=== PATIENT | female | born 1965 | race Caucasian/White ===

== ENCOUNTER → 2022-02-18 13:19 | Outpatient (BNVA) | payer MEDICARE, MEDICAID, SELFPAY | PROVIDERS: PCP Family Medicine; Visit Provider Emergency Medicine | DX: R39.9 Unspecified symptoms and signs involving the genitourinary system (principal); N39.0 Urinary tract infection, site not specified | CPT/HCPCS: 81000 ==

== ENCOUNTER 2022-09-09 19:05 | Emergency (ER) | payer MEDICARE, MEDICAID, SELFPAY ==
[2022-09-09 19:12] VITALS: BP 165/74; PULSE 99; RESP 16; TEMP 36.4; O2SAT 98
--- NOTE | 2022-09-09 21:43 | ED_ITS ---
Documented by User: Aaron Savage MD 09/17/22 20:00 HPI - General Adult General: Chief complaint: General Medical Stated complaint: detoxing from alcohol, anxiety attacks Time Seen by Provider: 09/09/22 21:43 History of Present Illness: Ms. Choi is a 57-year-old lady with history of alcohol abuse presenting to the emergency department due to concern for alcohol withdrawal symptoms. She reports many years of drinking and most recently has been drinking 1 pint of vodka per day. She last drink a normal amount 3 days ago and has been experiencing increased anxiety and shakiness as well as abdominal pain since she last drank. In order to make it here she did take a drink just prior to coming in. She endorses one-time previously of quitting alcohol and was sober for 90 days, no true DTs or alcohol withdrawal seizures. Currently endorses progressively worsening symptoms which are moderate to severe in intensity. Generalized abdominal discomfort. No other specific changes in health, exacerbating, or alleviating factors identified. Onset (ago): day(s) Severity: moderate Relieving factors: none Exacerbating factors: none Associated symptoms: Reports decreased appetite, malaise, weakness and other Review of Systems General: Reports: 10 or more systems reviewed and unremarkable except in HPI and below Const: Reports: malaise PFSH ED PFSH: Medical History Alcoholic liver disease Social History Smoking and tobacco status: current every day smoker Female Reproductive History: Spontaneous abortions: No Physical Exam Const: COMMON NORMALS: alert GENERAL APPEARANCE: cooperative and well developed HENMT: COMMON NORMALS: normocephalic and atraumatic HEAD & SCALP: normocephalic and atraumatic Eye: COMMON NORMALS: conjunctivae normal CONJUNCTIVA: Yes conjunctivae normal SCLERA: sclerae normal Neck/C-Spine: COMMON NORMALS: supple GENERAL: Yes trachea midline Resp: COMMON NORMALS: clear to auscultation bilaterally EFFORT & INSPECTION: Yes able to speak in complete sentences AUSCULTATION: clear to auscultation bilaterally Cardio: COMMON NORMALS: regular rate and regular rhythm RATE: regular rate RHYTHM: regular rhythm GI: COMMON NORMALS: Soft to palpation PALPATION: Yes Soft to palpation, Yes Tenderness to palpation present (GI), No Guarding due to palpation present (GI) and No Rigid due to palpation PERCUSSION: normal to percussion Extremity: GENERAL: Yes normal exam except as noted and No edema Neuro: COMMON NORMALS: moves all extremities SENSORIUM/ORIENTATION: Yes alert and No Orientation impaired Psych: COMMON NORMALS: mental status grossly normal and Normal thought process present THOUGHT PROCESS: Normal thought process present Course Vital Signs: Vital signs: Vital Signs Temperature 97.9 F 09/09/22 23:41 Pulse Rate 95 09/09/22 23:41 Respiratory Rate 16 09/09/22 23:41 Blood Pressure 143/77 09/09/22 23:41 Pulse Oximetry 93 09/09/22 23:41 Oxygen Delivery Me thod 09/09/22 23:41 [facility] - General Adult Medical Decision Making 57-year-old lady presenting with symptoms related to cessation of alcohol in the context of chronic alcohol abuse. Patient is nontoxic and no reported history of seizures or true DTs. Labs with no leukocytosis, anemia present and normal platelet count. Metabolic panel with likely dehydration, hypokalemia. Abnormal transaminases and elevated bilirubin and lipase. Negative urinalysis. The patient does have some degree of right upper quadrant tenderness though I believe that this is more likely related to alcoholic hepatitis ultrasound will be ordered for evaluation of other pathology. Patient treated during ED course with IV fluids and doses of phenobarbital with improvement in symptoms. Handed off to Dr. Higgins pending ultrasound with likely plan for discharge. 57-year-old female checked out to me at shift change. This was pending a gallbladder ultrasound given her elevated transaminases. Gallbladder ultrasound shows cirrhosis with no sign of acute cholecystitis. She does have gallstones. No other significant findings by ultrasound. She has passed an oral challenge here. She will be allowed discharge treatment for alcohol withdrawal signed by the previous physician. Medical Records I reviewed the patient's medical records. Lab Data I reviewed the patient's lab results. 09/09/22 22:00 09/09/22 22:00 Radiology Impressions Gallbladder Ultrasound 09/09/22 22:46 IMPRESSION: 1. No sign of acute cholecystitis. The gallbladder is decompressed and contains large stones. 2. Cirrhosis. Laboratory Results WBC 9.2 10^3/uL (4.0-10.0) 09/09/22 22:00 RBC 3.60 10^6/uL (4.1-5.3) L 09/09/22 22:00 Hgb 9.9 g/dL (11.5-15.3) L 09/09/22 22:00 Hct 31.8 % (37.0-47.0) L 09/09/22 22:00 MCV 88.3 fl (81-99) 09/09/22 22:00 MCH 27.5 pg (28.0-34.0) L 09/09/22 22:00 MCHC 31.1 g/dL (30.0-36.0) 09/09/22 22:00 RDW 18.6 % (12.1-15.1) H 09/09/22 22:00 Plt Count 194 10^3/cmm (130-400) 09/09/22 22:00 MPV 10.6 fL (7.4-10.4) H 09/09/22 22:00 Neut % (Auto) 59.8 % 09/09/22 22:00 Lymph % (Auto) 20.0 % 09/09/22 22:00 [place] % (Auto) 13.9 % 09/09/22 22:00 Eos % (Auto) 4.8 % 09/09/22 22:00 Baso % (Auto) 1.1 % 09/09/22 22:00 Neut # (Auto) 5.47 10^3/uL (1.8-7.7) 09/09/22 22:00 Lymph # (Auto) 1.8 10^3/uL (0.8-4.8) 09/09/22 22:00 [place] # (Auto) 1.3 10^3/uL (0.2-0.9) H 09/09/22 22:00 Eos # (Auto) 0.4 10^3/uL (0.0-0.8) 09/09/22 22:00 Baso # (Auto) 0.1 10^3/uL (0.0-0.1) 09/09/22 22:00 Nucleated RBC % (auto) 0 % 09/09/22 22:00 Nucleated RBCs # 0.0 /100WBC 09/09/22 22:00 Sodium 135 mmol/L (136-145) L 09/09/22 22:00 Potassium 3.2 mmol/L (3.5-5.1) L 09/09/22 22:00 Chloride 98 mmol/L (98-107) 09/09/22 22:00 Carbon Dioxide 28 mmol/L (22-29) 09/09/22 22:00 Anion Gap 12.2 (5-19) 09/09/22 22:00 BUN 21 mg/dL (6-20) H 09/09/22 22:00 Creatinine 0.9 mg/dL (0.5-0.9) 09/09/22 22:00 GFR Calculation 64.8 mL/min (90-130) L 09/09/22 22:00 Glucose 141 mg/dL (65-115) H 09/09/22 22:00 Calculated Osmolality 285 mOsm/kg (285-295) 09/09/22 22:00 Calcium 9.6 mg/dL (8.5-10.5) 09/09/22 22:00 Total Bilirubin 1.7 mg/dL (0.15-1.2) H 09/09/22 22:00 AST 97 U/L (0-32) H 09/09/22 22:00 ALT 73 U/L (0-33) H 09/09/22 22:00 Alkaline Phosphatase 313 U/L (35-105) H 09/09/22 22:00 Total Protein 7.4 g/dL (6.6-8.7) 09/09/22 22:00 Albumin 2.9 g/dL (3.5-5.2) L 09/09/22 22:00 Globulin 4.5 g/dL (1.3-4.6) 09/09/22 22:00 Lipase 92 U/L (13-60) H 09/09/22 22:00 TSH 3.49 uIU/mL (0.27-4.20) 09/09/22 22:00 Urine Color Yellow (Yellow) 09/09/22: Urine Appearance Clear (CLEAR) 09/09/22: Urine pH 6 (5-7) 09/09/22:23 Ur Specific [place] 1.015 (1.005-1.030) 09/09/22 23:23 Urine Protein Neg (Negative) 09/09/22 23: Urine Glucose (UA) Norm (Normal) 09/09/22 23:23 Urine Ketones Negative (Negative) 09/09/22 23:23 Urine Blood Neg (Negative) 09/09/22 23:23 Urine Nitrate Negative (Negative) 09/09/22 23:23 Urine Bilirubin Neg (Negative) 09/09/22 23:23 Urine Urobilinogen 1 mg/dL (Negative) H 09/09/22 23:23 Ur Leukocyte Esterase Negative (Negative) 09/09/22 23:23 Discharge Plan Discharge Patient Disposition: Home Clinical Impression: Alcohol withdrawal, Alcoholic liver disease, Elevated lipase, Transaminitis Condition: Stable Prescriptions: New ondansetron 4 mg tablet,disintegrating 4 mg PO Q8H PRN (Reason: nausea and vomiting) Qty: 15 0RF gabapentin 300 mg capsule See Rx Instructions .ROUTE .COMPLEX Qty: 66 0RF Rx Instructions: Day 1:1,200mg BID plus 1,200mg x 1 PRN d2-7:600mg TID plus 600mg x 1 PRN d8 :300mg TID d9:300mg BID d10:300mg QHS No Action losartan PO meloxicam PO sertraline PO clonazepam PO albuterol inhaler inhalation levothyroxine PO nitrofurantoin monohyd/m-cryst [Macrobid] 100 mg capsule 100 mg PO BID 7 Days Qty: 14 0RF Rx Instructions: must administer with a meal/food Discharge Orders: Discharge ED (Routine); Ordered 09/09/22 Ordered By: Jeovany Higgins Referrals: Catarino Rachel DO [Primary Care Provider] - 1-3 days Discharge Diet: Usual diet Discharge Activity: Increase activity as tolerated Patient Instructions: Alcohol Withdrawal (ED) Activity Restrictions/Additional Instructions: Thank you for visiting the emergency department. You were seen and evaluated for symptoms likely related to cessation of alcohol use. Based on ED evaluation you did not require hospitalization at this time. I will prescribe gabapentin which is a taper as well as nausea medication. Given long standing history of alcohol abuse I would not expect you to feel completely normal however I do believe that these medications will help with symptoms. Please follow-up with your primary care provider. Return to the emergency department for uncontrolled symptoms, seizures, hallucinations, or anything else that you are concerned about and feel needs emergency department evaluation. Gabapentin taper: Day 1: 1,200mg twice daily plus 1,200mg x 1 as needed Day 2-7: 600mg 3 times daily plus 600mg x 1 as needed Day 8: 300mg 3 times daily Day 9: 300mg twice daily Day 10: 300mg at night Coding Level of Care Code ED Pulp Screen Operator for Chg Fwd Documented by User: Jeovany Higgins DO 09/10/22 00:29 HPI - General Adult General: Chief complaint: General Medical Stated complaint: detoxing from alcohol, anxiety attacks Time Seen by Provider: 09/09/22 21:43 PFSH ED PFSH: Medical History Alcoholic liver disease Social History Smoking and tobacco status: current every day smoker Course Vital Signs: Vital signs: Vital Signs Temperature 97.9 F 09/09/22 23:41 Pulse Rate 95 09/09/22 23:41 Respiratory Rate 16 09/09/22 23:41 Blood Pressure 143/77 09/09/22 23:41 Pulse Oximetry 93 09/09/22 23:41 Oxygen Delivery Me thod 09/09/22 23:41 MDM - General Adult Medical Decision Making 57-year-old female checked out to id at shift change. This was pending a gallbladder ultrasound given her elevated transaminases. Gallbladder ultrasound shows cirrhosis with no sign of acute cholecystitis. She does have gallstones. No other significant findings by ultrasound. She has passed an oral challenge here. She will be allowed discharge treatment for alcohol withdrawal signed by the previous physician. Lab Data 09/09/22 22:00 09/09/22 22:00 Radiology Impressions Gallbladder Ultrasound 09/09/22 22:46 IMPRESSION: 1. No sign of acute cholecystitis. The gallbladder is decompressed and contains large stones. 2. Cirrhosis. Laboratory Results WBC 9.2 10^3/uL (4.0-10.0) 09/09/22 22:00 RBC 3.60 10^6/uL (4.1-5.3) L 09/09/22 22:00 Hgb 9.9 g/dL (11.5-15.3) L 09/09/22 22:00 Hct 31.8 % (37.0-47.0) L 09/09/22 22:00 MCV 88.3 fl (81-99) 09/09/22 22:00 MCH 27.5 pg (28.0-34.0) L 09/09/22 22:00 MCHC 31.1 g/dL (30.0-36.0) 09/09/22 22:00 RDW 18.6 % (12.1-15.1) H 09/09/22 22:00 Plt Count 194 10^3/cmm (130-400) 09/09/22 22:00 MPV 10.6 fL (7.4-10.4) H 09/09/22 22:00 Neut % (Auto) 59.8 % 09/09/22 22:00 Lymph % (Auto) 20.0 % 09/09/22 22:00 [place] % (Auto) 13.9 % 09/09/22 22:00 Eos % (Auto) 4.8 % 09/09/22 22:00 Baso % (Auto) 1.1 % 09/09/22 22:00 Neut # (Auto) 5.47 10^3/uL (1.8-7.7) 09/09/22 22:00 Lymph # (Auto) 1.8 10^3/uL (0.8-4.8) 09/09/22 22:00 [place] # (Auto) 1.3 10^3/uL (0.2-0.9) H 09/09/22 22:00 Eos # (Auto) 0.4 10^3/uL (0.0-0.8) 09/09/22 22:00 Baso # (Auto) 0.1 10^3/uL (0.0-0.1) 09/09/22 22:00 Nucleated RBC % (auto) 0 % 09/09/22 22:00 Nucleated RBCs # 0.0 /100WBC 09/09/22 22:00 Sodium 135 mmol/L (136-145) L 09/09/22 22:00 Potassium 3.2 mmol/L (3.5-5.1) L 09/09/22 22:00 Chloride 98 mmol/L (98-107) 09/09/22 22:00 Carbon Dioxide 28 mmol/L (22-29) 09/09/22 22:00 Anion Gap 12.2 (5-19) 09/09/22 22:00 BUN 21 mg/dL (6-20) H 09/09/22 22:00 Creatinine 0.9 mg/dL (0.5-0.9) 09/09/22 22:00 GFR Calculation 64.8 mL/min (90-130) L 09/09/22 22:00 Glucose 141 mg/dL (65-115) H 09/09/22 22:00 Calculated Osmolality 285 mOsm/kg (285-295) 09/09/22 22:00 Calcium 9.6 mg/dL (8.5-10.5) 09/09/22 22:00 Total Bilirubin 1.7 mg/dL (0.15-1.2) H 09/09/22 22:00 AST 97 U/L (0-32) H 09/09/22 22:00 ALT 73 U/L (0-33) H 09/09/22 22:00 Alkaline Phosphatase 313 U/L (35-105) H 09/09/22 22:00 Total Protein 7.4 g/dL (6.6-8.7) 09/09/22 22:00 Albumin 2.9 g/dL (3.5-5.2) L 09/09/22 22:00 Globulin 4.5 g/dL (1.3-4.6) 09/09/22 22:00 Lipase 92 U/L (13-60) H 09/09/22 22:00 TSH 3.49 uIU/mL (0.27-4.20) 09/09/22 22:00 Urine Color Yellow (Yellow) 09/09/22: Urine Appearance Clear (CLEAR) 09/09/22: Urine pH 6 (5-7) 09/09/22: Ur Specific [place] 1.015 (1.005-1.030) 09/09/22 23:23 Urine Protein Neg (Negative) 09/09/22: Urine Glucose (UA) Norm (Normal) 01/28/23 23:23 Urine Ketones Negative (Negative) 09/09/22 23:23 Urine Blood Neg (Negative) 09/09/22 23:23 Urine Nitrate Negative (Negative) 09/09/22 23:23 Urine Bilirubin Neg (Negative) 09/09/22 23:23 Urine Urobilinogen 1 mg/dL (Negative) H 09/09/22 23:23 Ur Leukocyte Esterase Negative (Negative) 09/09/22 23:23 Discharge Plan Discharge Patient Disposition: Home Clinical Impression: Alcohol withdrawal, Alcoholic liver disease, Elevated lipase, Transaminitis Condition: Stable Prescriptions: New ondansetron 4 mg tablet,disintegrating 4 mg PO Q8H PRN (Reason: nausea and vomiting) Qty: 15 0RF gabapentin 300 mg capsule See Rx Instructions .ROUTE .COMPLEX Qty: 66 0RF Rx Instructions: Day 1:1,200mg BID plus 1,200mg x 1 PRN d2-7:600mg TID plus 600mg x 1 PRN d8:300mg TID d9:300mg BID d10:300mg QHS No Action losartan PO meloxicam PO sertraline PO clonazepam PO albuterol inhaler inhalation levothyroxine PO nitrofurantoin monohyd/m-cryst [Macrobid] 100 mg capsule 100 mg PO BID 7 Days Qty: 14 0RF Rx Instructions: must administer with a meal/food Discharge Orders: Discharge ED (Routine); Ordered 09/09/22 Ordered By: Jeovany Higgins Referrals: Catarino Rachel DO [Primary Care Provider] - 1-3 days Discharge Diet: Usual diet Discharge Activity: Increase activity as tolerated Patient Instructions: Alcohol Withdrawal (ED) Activity Restrictions/Additional Instructions: Thank you for visiting the emergency department. You were seen and evaluated for symptoms likely related to cessation of alcohol use. Based on ED evaluation you did not require hospitalization at this time. I will prescribe gabapentin which is a taper as well as nausea medication. Given long standing history of alcohol abuse I would not expect you to feel completely normal however I do believe that these medications will help with symptoms. Please follow-up with your primary care provider. Return to the emergency department for uncontrolled symptoms, seizures, hallucinations, or anything else that you are concerned about and feel needs emergency department evaluation. Gabapentin taper: Day 1: 1,200mg twice daily plus 1,200mg x 1 as needed Day 2-7: 600mg 3 times daily plus 600mg x 1 as needed Day 8: 300mg 3 times daily Day 9: 300mg twice daily Day 10: 300mg at night Coding Level of Care Code ED Pulp Screen Operator for [place] Bermeo
[2022-09-09 22:08] LABS: Basophils # 0.1 10^3/uL (0.0-0.1); Basophils % 1.1 %; Eosinophils # 0.4 10^3/uL (0.0-0.8); Eosinophils % 4.8 %; Hematocrit 31.8 % (37.0-47.0); Hemoglobin 9.9 g/dL (11.5-15.3); Lymphocytes # 1.8 10^3/uL (0.8-4.8); Mean Corpuscular HGB Conc 31.1 g/dL (30.0-36.0); Mean Corpuscular Hemoglobin 27.5 pg (28.0-34.0); Mean Corpuscular Volume 88.3 fl (81-99); Mean Platelet Volume 10.6 fL (7.4-10.4); Monocytes # 1.3 10^3/uL (0.2-0.9); Monocytes % 13.9 %; Neutrophils # 5.47 10^3/uL (1.8-7.7); Neutrophils % 59.8 %; Nucleated Red Blood Cells % 0 %; Platelet Count 194 10^3/cmm (130-400); Red Cell Distribution Width 18.6 % (12.1-15.1); White Blood Count 9.2 10^3/uL (4.0-10.0)
[2022-09-09] MEDS: sodium chloride 0.9% 1,000 ML 999 ML IV (22:13)
[2022-09-09] MEDS: PHENobarbital 130 mg/mL SDV 1 mL IV (22:14)
[2022-09-09 22:37] LABS: Alanine Aminotransferase 73 U/L (0-33); Albumin Level 2.9 g/dL (3.5-5.2); Alkaline Phosphatase 313 U/L (35-105); Anion Gap 12.2 (5-19); Aspartate Amino Transferase 97 U/L (0-32); Blood Urea Nitrogen 21 mg/dL (6-20); Calcium 9.6 mg/dL (8.5-10.5); Carbon Dioxide 28 mmol/L (22-29); Chloride 98 mmol/L (98-107); Globulin 4.5 g/dL (1.3-4.6); Glomerular Filtration Rate 64.8 mL/min (90-130); Glucose 141 mg/dL (65-115); Lipase 92 U/L (13-60); Osmolality Calculated 285 mOsm/kg (285-295); Potassium 3.2 mmol/L (3.5-5.1); Sodium 135 mmol/L (136-145); Thyroid Stimulating Hormone 3.49 uIU/mL (0.27-4.20); Total Bilirubin 1.7 mg/dL (0.15-1.2); Total Protein 7.4 g/dL (6.6-8.7)
--- NOTE | 2022-09-09 22:46 | USR_ITS ---
PROCEDURE INFORMATION: Exam: US Abdomen, Limited; Right Upper Quadrant Exam date and time: 09/09/2022 10:55 PM Age: 57 years old Clinical indication: Abdominal pain; Generalized; Additional info: Abd pain, transaminitis and elevated lipase TECHNIQUE: Imaging protocol: Real time ultrasound of the abdomen with image documentation. Limited exam focused on the right upper quadrant. COMPARISON: No relevant prior studies available. FINDINGS: Liver: The liver has a nodular contour and heterogeneous parenchymal echotexture. No mass is seen. Gallbladder: The gallbladder is decompressed preventing meaningful assessment the wall thickness. There are multiple calcified stones in the lumen. The largest measures 3.5 x 2.5 x 0.8 cm. Information regarding the presence or absence of sonographic Agosto sign was not provided. Biliary ducts: The common bile duct is nondilated measuring 3 mm Pancreas: The visible portion of the pancreas is unremarkable. Right kidney: The right kidney is unremarkable. Aorta: The visible portion of the abdominal aorta is unremarkable. Portal venous: The main portal vein is patent. US/US gall bladder [id number] IMPRESSION: 1. No sign of acute cholecystitis. The gallbladder is decompressed and contains large stones. 2. Cirrhosis.
[2022-09-09 23:32] LABS: Add Urine Microscopic? NO; Charge for UA Resulting for Rev
[2022-09-09 23:41] VITALS: BP 143/77; PULSE 95; RESP 16; TEMP 36.6; O2SAT 93
[2022-09-09 23:46] LABS: Blood Urine Neg (Negative); Glucose Urine UA Norm (Normal); Ketones Urine Negative (Negative); Protein Urine Neg (Negative); Specific Gravity, Urine 1.015 (1.005-1.030); Urine Appearance Clear (CLEAR); Urine Color Yellow (Yellow); pH Urine 6 (5-7)
[2022-09-09 23:47] LABS: Bilirubin Urine Neg (Negative); Leukocyte Esterase Urine Negative (Negative); Nitrate Urine Negative (Negative); Urobilinogen Urine 1 mg/dL (Negative)
== END 2022-09-10 01:17 | disposition home or self-care (01) ==
PROVIDERS: Emergency Medicine; Emergency Provider Emergency Medicine; PCP Family Medicine
DX: F10.239 Alcohol dependence with withdrawal, unspecified (principal); K70.9 Alcoholic liver disease, unspecified; R74.01 Elevation of levels of liver transaminase levels; E07.9 Disorder of thyroid, unspecified; R74.8 Abnormal levels of other serum enzymes; F17.210 Nicotine dependence, cigarettes, uncomplicated; K80.20 Calculus of gallbladder without cholecystitis without obstruction
CPT/HCPCS: 36415; 76705; 80053; 81003; 83690; 84443; 85025; 96361; 96374; 99284; J2560; J7030

== ENCOUNTER 2022-09-23 20:36 | Emergency (ER) | payer MEDICARE, MEDICAID, SELFPAY ==
[2022-09-23 20:37] VITALS: BP 143/74; PULSE 100; RESP 14; O2SAT 91; BMI 29.2
--- NOTE | 2022-09-23 21:18 | PC.NURSE ---
pt had large formed bowel movement.
--- NOTE | 2022-09-23 21:40 | CTR_ITS ---
PROCEDURE INFORMATION: Exam: CT Abdomen And Pelvis Without Contrast Exam date and time: 09/23/2022 9:56 PM Age: 57 years old Clinical indication: Abdominal pain; Prior surgery; Surgery date: 6+ months; Surgery type: Bi hip replacements; Additional info: Abd distention/pain TECHNIQUE: Imaging protocol: Computed tomography of the abdomen and pelvis without contrast. Radiation optimization: All CT scans at this facility use at least one of these dose optimization techniques: automated exposure control; mA and/or kV adjustment per patient size (includes targeted exams where dose is matched to clinical indication); or iterative reconstruction. Other protocol: This patient has received 0 known CTs and 0 known cardiac nuclear medicine studies in the 12 months prior to the current study. COMPARISON: US gall bladder [id number] 09/09/2022 10:55 PM RADIATION DOSE METRICS: Total DLP (mGy-cm): 686.12 FINDINGS: Lungs: Bibasilar discoid atelectasis and/or scarring. Heart: Severe calcification in the mitral valve and/or mitral valve annulus. Liver: Hepatic cirrhosis morphology with nodular contour and/or caudate lobe enlargement and/or left lobe enlargement. Gallbladder and bile ducts: Multiple gallstones within the gallbladder. Pancreas: Normal. No ductal dilation. Spleen: Normal. No splenomegaly. Adrenal glands: Normal. No mass. Kidneys and ureters: Normal. No hydronephrosis. Stomach and bowel: Dilated colon filled with air, fluid and feces suggesting possible colonic ileus. No obvious obstructing lesion. Appendix: No evidence of appendicitis. Intraperitoneal space: Unremarkable. No free air. No significant fluid collection. Vasculature: Calcification of the abdominal aorta and/or iliac arteries consistent with atherosclerotic vessel disease. One or more calcified pelvic phleboliths. Lymph nodes: Unremarkable. No enlarged lymph nodes. Urinary bladder: Unremarkable as visualized. Reproductive: Possible hysterectomy although the anatomy is obscured by metallic artifact. Bones/joints: Bilateral total hip replacement with metallic artifact partially obscuring the pelvic anatomy. Soft tissues: Unremarkable. CT/CT abdomen pelvis wo con [id number] IMPRESSION: 1. Bilateral total hip replacement with metallic artifact partially obscuring the pelvic anatomy. 2. Multiple gallstones within the gallbladder. 3. Dilated colon filled with air, fluid and feces suggesting possible colonic ileus. No obvious obstructing lesion.
--- NOTE | 2022-09-23 21:41 | ECG_ITS ---
[facility] Test Date: 2022-09-23 Pat Name: Heather Choi Department: Room: Gender: Female Grinding Machine Operator Automatic: : 1965 Requested By: Riley Randall Order Number: [id number] Abigail MD: Deondre Win M.D. Measurements Intervals [place] Rate: 89 P: 72 SC: 148 QRS: 27 QRSD: 102 T: 52 QT: 401 QTc: 490 Interpretive Statements SINUS RHYTHM POSSIBLE LEFT ATRIAL ENLARGEMENT [-0.1mV P-WAVE IN V1/V2] No previous ECG available for comparison Electronically Signed On 09-24-2022 8:40:43 BUSINESS OBJECTS CONSULTANT by Deondre Win M.D. [email or web address]
--- NOTE | 2022-09-23 21:41 | W.ED.ABDPA2 ---
HPI - Abdominal Pain General: Chief Complaint: Abdominal Pain Stated Complaint: CONSTIPATION Time Seen by Provider: 09/23/22 20:39 Source: patient and family Mode of arrival: ambulatory Limitations: no limitations History of Present Illness: ApparentlyPatient comes to our emergency department because of abdominal distention and no bowel movement for the last several days. She has a history of chronic constipation. She was recently at [facility] for alcoholic detox and was just discharged yesterday. States has been drinking fluids today but has not had a bowel movement and feels very distended. She states she has been using Librium as prescribed. She denies taking any opiates or other pain medications. She denies any history of abdominal surgeries. PFSH ED PFSH: Medical History Alcoholic liver disease Social History Smoking and tobacco status: current every day smoker Female Reproductive History: Spontaneous abortions: No Course Reevaluation(s): Reevaluation #1: Patient apparently had a large bowel movement while waiting for my evaluation. She states she does not feel significantly better. Time: 21:42 Reevaluation #2: Patient was reevaluated. I shared results with her. She admitted to me that she has not been taking any MiraLAX that she has at home. No evidence of obstruction or other worrisome condition at this time. She has a history of chronic constipation and will certainly benefit from a regular bowel regimen. She is suitable to be discharged for outpatient management with return precautions. Time: 22:31 Vital Signs: Vital signs: Vital Signs Pulse Rate 100 09/23/22 20:37 Respiratory Rate 14 09/23/22 20:37 Blood Pressure 143/74 09/23/22 20:37 Pulse Oximetry 91 09/23/22 20:37 Oxygen Delivery Me thod 09/23/22 20:37 MDM - Abdominal Pain Medical Decision Making Patient with a history of chronic alcohol use just recently discharged from detox who has also a history of chronic constipation presents because of abdominal distention and no bowel movement for the last several days. He is currently on Librium for continuation of her detox gram. No opiate use currently. Patient was admittedly not using any kind of bowel regimen. Her evaluation tonight did not reveal any evidence of a surgical abdomen she had abdominal distention but had a large formed bowel movement while in the emergency department. Subsequent laboratories and a CT scan did not reveal any perturbations of new or concerning laboratories other than her transaminitis which is chronic due to her chronic alcohol use. Given CT scan did not show any biliary tract obstruction etc. He received IV hydration while in the emergency department and is suitable to be managed as an outpatient with use of MiraLAX 1 packet 3 times daily to help with her bowel regiment. No evidence at this time to suggest surgical abdomen reasons for continued observation and/or admission. Patient voiced understanding and was desirous to be discharged home. Medical Records I reviewed the patient's medical records. Lab Data I reviewed the patient's lab results. 09/23/22 21:20 09/23/22 21:20 Labs/Radiology: Radiology Impressions Abdomen/Pelvis CT 09/23/22 21:40 IMPRESSION: 1. Bilateral total hip replacement with metallic artifact partially obscuring the pelvic anatomy. 2. Multiple gallstones within the gallbladder. 3. Dilated colon filled with air, fluid and feces suggesting possible colonic ileus. No obvious obstructing lesion. Laboratory Results WBC 10.5 10^3/uL (4.0-10.0) H 09/23/22 21:20 RBC 3.49 10^6/uL (4.1-5.3) L 09/23/22 21:20 Hgb 9.6 g/dL (11.5-15.3) L 09/23/22 21:20 Hct 30.6 % (37.0-47.0) L 09/23/22 21:20 MCV 87.7 fl (81-99) 09/23/22 21:20 MCH 27.5 pg (28.0-34.0) L 09/23/22 21:20 MCHC 31.4 g/dL (30.0-36.0) 09/23/22 21:20 RDW 20.3 % (12.1-15.1) H 09/23/22 21:20 Plt Count 178 10^3/cmm (130-400) 09/23/22 21:20 MPV 11.1 fL (7.4-10.4) H 09/23/22 21:20 Neut % (Auto) 65.5 % 09/23/22 21:20 Lymph % (Auto) 13.3 % 09/23/22 21:20 [place] % (Auto) 13.0 % 09/23/22 21:20 Eos % (Auto) 7.3 % 09/23/22 21:20 Baso % (Auto) 0.6 % 09/23/22 21:20 Neut # (Auto) 6.85 10^3/uL (1.8-7.7) 09/23/22 21:20 Lymph # (Auto) 1.4 10^3/uL (0.8-4.8) 09/23/22 21:20 [place] # (Auto) 1.4 10^3/uL (0.2-0.9) H 09/23/22 21:20 Eos # (Auto) 0.8 10^3/uL (0.0-0.8) 09/23/22 21:20 Baso # (Auto) 0.1 10^3/uL (0.0-0.1) 09/23/22 21:20 Nucleated RBC % (auto) 0 % 09/23/22 21:20 Nucleated RBCs # 0.0 /100WBC 09/23/22 21:20 Sodium 137 mmol/L (136-145) 09/23/22 21:20 Potassium 3.4 mmol/L (3.5-5.1) L 09/23/22 21:20 Chloride 98 mmol/L (98-107) 09/23/22 21:20 Carbon Dioxide 28 mmol/L (22-29) 09/23/22 21:20 Anion Gap 14.4 (5-19) 09/23/22 21:20 BUN 21 mg/dL (6-20) H 09/23/22 21:20 Creatinine 0.9 mg/dL (0.5-0.9) 09/23/22 21:20 GFR Calculation 64.8 mL/min (90-130) L 09/23/22 21:20 Glucose 127 mg/dL (65-115) H 09/23/22 21:20 Calculated Osmolality 289 mOsm/kg (285-295) 09/23/22 21:20 Calcium 9.2 mg/dL (8.5-10.5) 09/23/22 21:20 Total Bilirubin 1.7 mg/dL (0.15-1.2) H 09/23/22 21:20 AST 153 U/L (0-32) H 09/23/22 21:20 ALT 138 U/L (0-33) H 09/23/22 21:20 Alkaline Phosphatase 322 U/L (35-105) H 09/23/22 21:20 Total Protein 7.4 g/dL (6.6-8.7) 09/23/22 21:20 Albumin 3.1 g/dL (3.5-5.2) L 09/23/22 21:20 Globulin 4.3 g/dL (1.3-4.6) 09/23/22 21:20 EKG Data EKG 1: I personally reviewed and interpreted this EKG as follows: Interpretation: Contemporaneous review of EKG reveals ventricular rate of 89 bpm. Normal NM interval, QRS duration, corrected QT interval. Normal axis. P waves noted to be enlarged on limb lead II suggestive of possible left atrial enlargement. No other acute changes noted at this time. Discharge Plan Discharge Patient Disposition: Home Clinical Impression: Constipation, Transaminitis, Alcoholism Condition: Stable Prescriptions: New polyethylene glycol 3350 [Miralax] 17 gram powder in packet 17 g PO BID Qty: 100 0RF No Action losartan PO meloxicam PO sertraline PO clonazepam PO albuterol inhaler inhalation levothyroxine PO nitrofurantoin monohyd/m-cryst [Macrobid] 100 mg capsule 100 mg PO BID 7 Days Qty: 14 0RF Rx Instructions: must administer with a meal/food ondansetron 4 mg tablet,disintegrating 4 mg PO Q8H PRN (Reason: nausea and vomiting) Qty: 15 0RF gabapentin 300 mg capsule See Rx Instructions .ROUTE .COMPLEX Qty: 66 0RF Rx Instructions: Day 1:1,200mg BID plus 1,200mg x 1 PRN d2-7:600mg TID plus 600mg x 1 PRN d8:300mg TID d9:300mg BID d10:300mg QHS Discharge Orders: Discharge ED (Routine); Ordered 09/23/22 Ordered By: Riley Randall Referrals: Catarino Rachel DO [Primary Care Provider] - Discharge Diet: Advance as tolerated Discharge Activity: Increase activity as tolerated Patient Instructions: Opioid Safety, Pain Management Activity Restrictions/Additional Instructions: Continue your Librium and other medications as prescribed. Do not drink alcohol. Drink at least 2 quarts of water daily. Take the MiraLAX as we discussed 1 packet to 2 3 times daily to help keep your bowels moving. Should you develop fever or increasing pain or other concerns at any time you are welcome to return to this or the nearest emergency department. Coding Level of Care Code ED Secretarial Stenographer for Milton Bermeo
[2022-09-23 21:49] LABS: Basophils # 0.1 10^3/uL (0.0-0.1); Basophils % 0.6 %; Eosinophils # 0.8 10^3/uL (0.0-0.8); Eosinophils % 7.3 %; Hematocrit 30.6 % (37.0-47.0); Hemoglobin 9.6 g/dL (11.5-15.3); Lymphocytes # 1.4 10^3/uL (0.8-4.8); Lymphocytes % 13.3 %; Mean Corpuscular HGB Conc 31.4 g/dL (30.0-36.0); Mean Corpuscular Hemoglobin 27.5 pg (28.0-34.0); Mean Corpuscular Volume 87.7 fl (81-99); Mean Platelet Volume 11.1 fL (7.4-10.4); Monocytes # 1.4 10^3/uL (0.2-0.9); Neutrophils # 6.85 10^3/uL (1.8-7.7); Neutrophils % 65.5 %; Nucleated Red Blood Cells % 0 %; Platelet Count 178 10^3/cmm (130-400); Red Blood Count 3.49 10^6/uL (4.1-5.3); Red Cell Distribution Width 20.3 % (12.1-15.1); White Blood Count 10.5 10^3/uL (4.0-10.0)
[2022-09-23] MEDS: sodium chloride 0.9% 1,000 ML 999 ML IV (22:03)
[2022-09-23 22:04] LABS: Alanine Aminotransferase 138 U/L (0-33); Albumin Level 3.1 g/dL (3.5-5.2); Alkaline Phosphatase 322 U/L (35-105); Anion Gap 14.4 (5-19); Aspartate Amino Transferase 153 U/L (0-32); Blood Urea Nitrogen 21 mg/dL (6-20); Calcium 9.2 mg/dL (8.5-10.5); Carbon Dioxide 28 mmol/L (22-29); Chloride 98 mmol/L (98-107); Globulin 4.3 g/dL (1.3-4.6); Glomerular Filtration Rate 64.8 mL/min (90-130); Glucose 127 mg/dL (65-115); Osmolality Calculated 289 mOsm/kg (285-295); Potassium 3.4 mmol/L (3.5-5.1); Sodium 137 mmol/L (136-145); Total Bilirubin 1.7 mg/dL (0.15-1.2); Total Protein 7.4 g/dL (6.6-8.7)
== END 2022-09-23 23:47 | disposition home or self-care (01) ==
PROVIDERS: Emergency Provider Emergency Medicine; PCP Family Medicine
DX: K59.00 Constipation, unspecified (principal); R74.01 Elevation of levels of liver transaminase levels; F10.20 Alcohol dependence, uncomplicated; F17.210 Nicotine dependence, cigarettes, uncomplicated
CPT/HCPCS: 74176; 80053; 85025; 93005; 96360; 99285; J7030

== ENCOUNTER 2022-09-28 14:27 | Observation (INO) | payer MEDICARE, MEDICAID, SELFPAY ==
[2022-09-28 14:40] VITALS: BP 141/48; PULSE 107; RESP 18; TEMP 36.6; O2SAT 86; BMI 33.7
--- NOTE | 2022-09-28 15:03 | ED_ITS ---
HPI - Alcohol General: Chief Complaint: Alcohol Stated Complaint: WANTS DETOX Time Seen by Provider: 09/28/22 14:37 Source: patient Mode of arrival: EMS History of Present Illness: 57-year-old female presents to the emergency room stating that she is withdrawing from alcohol. Her last drink was at 11:00 this morning. She usually drinks a pint of alcohol per day usually in the form of vodka. She reports having had seizures back in 2014 when she tried to stop drinking. When asked her why she was trying to stop she said because I told him the only way she would be able to get a hip replacement. She was seated to rehab she presents here primarily because she is concerned she is going to have seizures. MD complaint: alcohol dependence Last drink: Hours (ago) Chronic alcohol use: Yes Previous visits for alcohol intoxication: Yes Recent trauma: No Associated symptoms: Deny abdominal pain, depression, diaphoresis, hematemesis, involuntary movements, melena, nausea, seizure-like activity, suicidal ideation, syncope, vomiting or other Treatments prior to arrival: none Review of Systems Const: Denies: fever(s), chills, fatigue, malaise or diaphoresis ENMT: Denies: throat pain, ear or mastoid pain, nasal discharge or nasal congestion Card: Denies: chest pain, palpitations, irregular heart rhythm, edema, swelling of feet/ankles or syncope Resp: Denies: dyspnea, productive cough or non-productive cough GI: Denies: abdominal pain, nausea, vomiting, hematemesis or melena : Denies: flank pain, difficulty voiding, dysuria, urinary frequency or urinary urgency Musc: Denies: neck pain or back pain Skin/Breast: Denies: rash or pruritus Neuro: Denies: seizure-like activity or involuntary movements Psych: Denies: anxiety, depression or suicidal ideation PFSH ED PFSH: Medical History Alcohol use disorder Alcoholic liver disease HTN (hypertension) Osteoarthritis Surgical History History of hip replacement, total Family History Other Alcoholism Social History Smoking and tobacco status: current every day smoker Alcohol intake: current Alcohol intake frequency: 3 or more drinks per day Alcohol type: hard liquor Lives independently: Yes Household members: none Marital status: Single Female Reproductive History: Spontaneous abortions: No Physical Exam Const: COMMON NORMALS: no acute distress GENERAL APPEARANCE: cooperative and comfortable ORIENTATION/CONSCIOUSNESS: Yes awake, Yes oriented to person, Yes oriented to place and Yes oriented to time HENMT: COMMON NORMALS: normocephalic, atraumatic and hearing grossly normal bilaterally HEAD & SCALP: normocephalic and atraumatic Resp: COMMON NORMALS: normal respiratory effort, No retractions, No use of accessory muscles and clear to auscultation bilaterally AUSCULTATION: clear to auscultation bilaterally Cardio: COMMON NORMALS: regular rate, regular rhythm and No murmurs present (Cardio) RATE: regular rate RHYTHM: regular rhythm GI: COMMON NORMALS: Soft to palpation and No hepatosplenomegaly present AUSCULTATION: Yes normoactive bowel sounds PALPATION: Yes Soft to palpation, No Tenderness to palpation present (GI), No Guarding due to palpation present (GI) and Yes No hepatosplenomegaly present Extremity: COMMON NORMALS: normal to inspection, capillary refill normal, no clubbing, cyanosis or edema, no calf tenderness and no pedal edema Neuro: SENSORIUM/ORIENTATION: Yes oriented to person, Yes oriented to place and Yes oriented to time Skin: COMMON NORMALS: no rashes or lesions noted GENERAL SKIN EXAM: no rashes or lesions noted Course Vital Signs: Vital signs: Vital Signs Temperature 98.0 F 09/30/22 15:00 Pulse Rate 86 09/30/22 15:00 Respiratory Rate 18 09/30/22 15:00 Blood Pressure 145/78 09/30/22 15:00 Pulse Oximetry 91 09/30/22 15:00 Oxygen Delivery Me thod 09/30/22 08:52 Oxygen Flow Rate 5 09/30/22 08:35 MDM - Alcohol Medical Decision Making Alcohol withdrawal with acute anemia. Patient given Ativan here which did help her tremor.. Hemoccult stools. Discussed with hospitalist continue CIWA protocol May require EGD to evaluate for acute blood loss from gastric source. Medical Records I reviewed the patient's medical records. Lab Data I reviewed the patient's lab results. 09/30/22 04:05 09/30/22 04:05 Radiology Impressions Chest X-Ray 09/28/22 16:03 Impression: Atherosclerosis and hyperinflation. Laboratory Results WBC 9.5 10^3/uL (4.0-10.0) 09/28/22 15:15 RBC 3.23 10^6/uL (4.1-5.3) L 09/28/22 15:15 Hgb 8.8 g/dL (11.5-15.3) L 09/28/22 15:15 Hct 28.5 % (37.0-47.0) L 09/28/22 15:15 MCV 88.2 fl (81-99) 09/28/22 15:15 MCH 27.2 pg (28.0-34.0) L 09/28/22 15:15 MCHC 30.9 g/dL (30.0-36.0) 09/28/22 15:15 RDW 19.6 % (12.1-15.1) H 09/28/22 15:15 Plt Count 208 10^3/cmm (130-400) 09/28/22 15:15 MPV 9.7 fL (7.4-10.4) 09/28/22 15:15 Neut % (Auto) 68.4 % 09/28/22 15:15 Lymph % (Auto) 10.5 % 09/28/22 15:15 [place] % (Auto) 14.8 % 09/28/22 15:15 Eos % (Auto) 5.2 % 09/28/22 15:15 Baso % (Auto) 0.8 % 09/28/22 15:15 Neut # (Auto) 6.50 10^3/uL (1.8-7.7) 09/28/22 15:15 Lymph # (Auto) 1.0 10^3/uL (0.8-4.8) 09/28/22 15:15 [place] # (Auto) 1.4 10^3/uL (0.2-0.9) H 09/28/22 15:15 Eos # (Auto) 0.5 10^3/uL (0.0-0.8) 09/28/22 15:15 Baso # (Auto) 0.1 10^3/uL (0.0-0.1) 09/28/22 15:15 Nucleated RBC % (auto) 0 % 09/28/22 15:15 Nucleated RBCs # 0.0 /100WBC 09/28/22 15:15 Sodium 136 mmol/L (136-145) 09/28/22 15:15 Potassium 3.0 mmol/L (3.5-5.1) L 09/28/22 15:15 Chloride 95 mmol/L (98-107) L 09/28/22 15:15 Carbon Dioxide 28 mmol/L (22-29) 09/28/22 15:15 Anion Gap 16.0 (5-19) 09/28/22 15:15 BUN 20 mg/dL (6-20) 09/28/22 15:15 Creatinine 1.4 mg/dL (0.5-0.9) H 09/28/22 15:15 GFR Calculation 38.9 mL/min (90-130) L 09/28/22 15:15 Glucose 113 mg/dL (65-115) 09/28/22 15:15 Calculated Osmolality 285 mOsm/kg (285-295) 09/28/22 15:15 Calcium 8.7 mg/dL (8.5-10.5) 09/28/22 15:15 Total Bilirubin 1.7 mg/dL (0.15-1.2) H 09/28/22 15:15 AST 51 U/L (0-32) H 09/28/22 15:15 ALT 67 U/L (0-33) H 09/28/22 15:15 Alkaline Phosphatase 231 U/L (35-105) H 09/28/22 15:15 Total Protein 7.3 g/dL (6.6-8.7) 09/28/22 15:15 Albumin 3.1 g/dL (3.5-5.2) L 09/28/22 15:15 Globulin 4.2 g/dL (1.3-4.6) 09/28/22 15:15 Lipase 72 U/L (13-60) H 09/28/22 15:15 Ethyl Alcohol < 10 mg/dL (0-10) 09/28/22 15:15 Discharge Plan Discharge Patient Disposition: Admitted As Inpatient Admit Provider: Santos Saldaña Clinical Impression: Alcohol withdrawal, Acute anemia, Melena, JACK (acute kidney injury), Hypokalemia, Elevated liver function tests, Acute metabolic encephalopathy Condition: Stable Discharge Diet: As Directed, Low Cholesterol and Low Fat Coding Level of Care Code ED Sterile Instrument Technician for Milton Bermeo
[2022-09-28 15:43] LABS: Basophils # 0.1 10^3/uL (0.0-0.1); Basophils % 0.8 %; Eosinophils # 0.5 10^3/uL (0.0-0.8); Eosinophils % 5.2 %; Hematocrit 28.5 % (37.0-47.0); Hemoglobin 8.8 g/dL (11.5-15.3); Lymphocytes % 10.5 %; Mean Corpuscular HGB Conc 30.9 g/dL (30.0-36.0); Mean Corpuscular Hemoglobin 27.2 pg (28.0-34.0); Mean Corpuscular Volume 88.2 fl (81-99); Mean Platelet Volume 9.7 fL (7.4-10.4); Monocytes # 1.4 10^3/uL (0.2-0.9); Monocytes % 14.8 %; Neutrophils % 68.4 %; Nucleated Red Blood Cells % 0 %; Platelet Count 208 10^3/cmm (130-400); Red Blood Count 3.23 10^6/uL (4.1-5.3); Red Cell Distribution Width 19.6 % (12.1-15.1); White Blood Count 9.5 10^3/uL (4.0-10.0)
[2022-09-28] MEDS: folic acid 1 MG, multivitamin inj 10 ML, thiamine 100 MG in sodium chloride 0.9% 1,000 ML 252.8 MG IV (15:52)
[2022-09-28] MEDS: LORazepam 2 mg/mL INJ 1 mL IVP (15:58)
[2022-09-28] MEDS: promethazine 25 mg/mL SDV 1 mL IM (15:59)
--- NOTE | 2022-09-28 16:03 | XR_ITS ---
WS: [id number] Portable AP upright chest, 09/28/2022 Clinical Data: dyspnea/cough Comparison: None. Findings: No nodules, masses or effusions are seen. The heart is normal. The pulmonary vascularity is not increased. No pneumonia or pneumothorax is seen. There are minimal basilar atelectatic changes. The diaphragms are flattened. The aortic arch and descending thoracic aorta show calcification and mi ld tortuosity. There are monitor leads on the chest wall. XR/XR chest 1V portable [id number] Impression: Atherosclerosis and hyperinflation.
[2022-09-28 16:09] LABS: Alanine Aminotransferase 67 U/L (0-33); Albumin Level 3.1 g/dL (3.5-5.2); Alkaline Phosphatase 231 U/L (35-105); Aspartate Amino Transferase 51 U/L (0-32); Blood Urea Nitrogen 20 mg/dL (6-20); Calcium 8.7 mg/dL (8.5-10.5); Carbon Dioxide 28 mmol/L (22-29); Chloride 95 mmol/L (98-107); Globulin 4.2 g/dL (1.3-4.6); Glomerular Filtration Rate 38.9 mL/min (90-130); Glucose 113 mg/dL (65-115); Lipase 72 U/L (13-60); Osmolality Calculated 285 mOsm/kg (285-295); Sodium 136 mmol/L (136-145); Total Bilirubin 1.7 mg/dL (0.15-1.2); Total Protein 7.3 g/dL (6.6-8.7)
[2022-09-28 16:11] LABS: Alcohol Level < 10 mg/dL (0-10)
[2022-09-28] MEDS: ipratropium-albuterol 3 mL Neb INHALATION (16:24)
[2022-09-28 16:25] VITALS: PULSE 101; RESP 18; O2SAT 94
[2022-09-28 17:00] VITALS: BP 173/83; PULSE 102; RESP 14; O2SAT 94
[2022-09-28 18:25] VITALS: BP 173/83; PULSE 98; RESP 16; O2SAT 96
[2022-09-28] MEDS: pantoprazole 40 mg SDV IVP (18:35)
--- NOTE | 2022-09-28 18:57 | P.HP_ITS ---
Providers/Chief Complaint Admitting Physician: Santos Saldaña Primary Care Provider: Catarino Rachel DO Chief Complaint: WANTS DETOX History of Present Illness 57-year-old lady with history of alcohol use disorder, hypertension, osteoarthritis, smoking addiction, hypothyroidism, alcoholic liver disease, presented concerned that she is starting to withdraw from alcohol. She states that last drink was close to about 11 hours ago. She states that she normally drinks close to about 1-2 pints of vodka in a day. Reports history of withdrawal seizure. In ER she is currently lethargic but waking up to voice. Seems became more lethargic after receiving a dose of Ativan. She denies any other surreptitious drug use. She could not tell me whether she took her medications this morning. In ER is noted to have anemia with hemoglobin 8.8, reporting history of dark/black stools recently. Also noted JACK, creatinine at 1.4, prior creatinine 0.9 on 09/23. Abnormal liver parameters noted as well, T. bili 1.7, AST 51, ALT 67, alk phos 231. Lipase 72. EtOH undetectable. Chest x-ray with atherosclerosis and hyperinflation. Sister Yelena as surrogate decision-maker in case she could not make her own decisions. Review of Systems General: Reports: ROS unobtainable due to mental status Narrative: She falls asleep easily. Difficult to obtain review of systems. She denies headache, chest pain or pressure, shortness of breath. Has been having dark black stools. Denies taking NSAIDs, although meloxicam is listed on her home medications. Denies depression and any thoughts of self-harm or suicidal ideation. Medications/Allergies Home Medications Medication Instructions Recorded Confirmed Last Taken Type gabapentin 300 mg capsule See Rx Instructions .Route 09/09/22 09/28/22 Unknown Rx .COMPLEX #66 caps ondansetron 4 mg disintegrating 4 mg PO Q8H PRN nausea and 09/09/22 09/28/22 Unknown Rx tablet vomiting #15 tabs polyethylene glycol 3350 17 gram 17 g PO BID #100 ea 09/23/22 09/28/22 Unknown Rx oral powder packet (Miralax) albuterol sulfate 90 mcg/actuation 2 puff inhalation QID PRN 09/28/22 09/28/22 Unknown History aerosol inhaler Shortness Of Breath amlodipine 5 mg tablet 5 mg PO DAILY 09/28/22 09/28/22 Unknown History buspirone 5 mg tablet 5 mg PO TID 09/28/22 09/28/22 Unknown History chlorthalidone 25 mg tablet 25 mg PO DAILY 09/28/22 09/28/22 Unknown History clonazepam 0.5 mg tablet 0.5 mg PO BEDTIME PRN Anxiety 09/28/22 09/28/22 Unknown History levothyroxine 75 mcg tablet 75 mcg PO DAILY 09/28/22 09/28/22 Unknown History losartan 100 mg tablet 100 mg PO DAILY 09/28/22 09/28/22 Unknown History meloxicam 7.5 mg tablet 7.5 mg PO DAILY 09/28/22 09/28/22 Unknown History sertraline 100 mg tablet 100 mg PO DAILY 09/28/22 09/28/22 Unknown History Allergies Allergy/AdvReac Type Severity Reaction Status Date / Time No Known Allergies Allergy Unverified 09/09/22 19:15 PFSH Acute PFSH: Medical History Alcohol use disorder Alcoholic liver disease HTN (hypertension) Osteoarthritis Surgical History History of hip replacement, total Family History Other Alcoholism Social History Smoking and tobacco status: current every day smoker Alcohol intake: current Alcohol intake frequency: 3 or more drinks per day Alcohol type: hard liquor Substance/Drug Use: never Lives independently: Yes Household members: none Marital status: Single Female Reproductive History: Spontaneous abortions: No Vitals/I&O/Wt Last Vital Signs Temp 97.9 F 09/28/22 14:40 Pulse 98 09/28/22 18:25 Resp 16 09/28/22 18:25 BP 173/83 09/28/22 18:25 Pulse Ox 96 09/28/22 18:25 O2 Del Method 09/28/22 18:25 O2 Flow Rate 2 09/28/22 16:25 Weight last 48 hrs Weight 78.471 kg Physical Exam Narrative: Wakes up to voice, falls asleep easily. Const: GENERAL APPEARANCE: cooperative ORIENTATION/CONSCIOUSNESS: Yes lethargic OTHER: Mildly slurred speech Mild tremor. HENMT: COMMON NORMALS: oropharynx normal Neck/C-Spine: COMMON NORMALS: no JVD Resp: COMMON NORMALS: normal respiratory effort and clear to auscultation bilaterally AUSCULTATION: clear to auscultation bilaterally Cardio: COMMON NORMALS: no JVD, regular rhythm, S1 normal heart sound present, S2 normal heart sound present and No murmurs present (Cardio) RHYTHM: regular rhythm HEART SOUNDS: S1 normal heart sound present and S2 normal heart sound present GI: COMMON NORMALS: Normal to inspection, nondistended, normoactive bowel sounds present, Soft to palpation and non-tender PALPATION: Yes Soft to palpation Extremity: COMMON NORMALS: no joint enlargement and no pedal edema Neuro: COMMON NORMALS: moves all extremities SENSORIUM/ORIENTATION: Yes alert Skin: COMMON NORMALS: no rashes or lesions noted GENERAL SKIN EXAM: no rashes or lesions noted Data 09/28/22 15:15 09/28/22 15:15 A&P Assessment and plan (1) Alcohol withdrawal: Currently lethargic after receiving Ativan. May be combination toxic effect of her medications like gabapentin, possibly benzodiazepine that she has at home with clonazepam in the setting of JACK. Discussed with ER physician. Continue to monitor CIWA for further withdrawal. In case needing further benzodiazepine decrease dose to 2.5 mg. Requested thiamine, folic acid and multivitamin supplementation. Seizure precautions due to history of withdrawal seizures. Requires close monitoring. Monitoring with telemetry due to dyspnea with alcohol withdrawal, potassium abnormalities. Lipase noted, 72. (2) Acute anemia: Hemoglobin down to 8.8, on 09/23 hemoglobin was 9.6. PPI IV twice daily. D iscontinue NSAID. Requested follow-up blood counts. Check Hemoccult. Once recovers from more acute issues we will benefit from endoscopic evaluation. Monitor hemoglobin due to risk of further bleeding, requested. Check INR. Hold sertraline. (3) Melena: Likely NSAID induced gastritis/PUD. Will need further work-up as above. (4) JACK (acute kidney injury): Possibly NSAID induced. Requesting urine studies. Discontinue NSAIDs. Receiving fluid challenge. Follow-up renal function. Hold losartan. (5) Hypokalemia: Receiving IVF with potassium. Follow-up potassium level. Requested magnesium. (6) Transaminitis: Secondary to EtOH. Does have history of cholelithiasis noted on prior CT. No abdominal pain currently. No upper quadrant tenderness. Reassess transaminases. Monitor T. bili and alk phos. (7) Acute encephalopathy: Acute metabolic encephalopathy with alcohol withdrawal, possibly toxic effect from medications with JACK, possibly gabapentin, sertraline, benzodiazepine (clonazepam). Hold these medications for now. Plan Smoking addiction: Nicotine replacement. Hypertension: Continue amlodipine. Hypothyroidism ER documentation reviewed. Attestations Medical Necessity Statement*: Admission of over 2 midnights discontinued for assessment management of alcohol withdrawal with history of severe withdrawal in cluding seizure, acute encephalopathy, acute anemia with GI bleeding, JACK. Diagnoses Alcohol withdrawal F10.939 Acute anemia D64.9 Melena K92.1 JACK (acute kidney injury) N17.9 Hypokalemia E87.6 Transaminitis R74.01 Acute encephalopathy G93.40
[2022-09-28 20:16] VITALS: BP 109/67; PULSE 99; RESP 19; TEMP 37; O2SAT 94
[2022-09-28] MEDS: D5-NS 0.45% + KCL 20 mEq 20 MEQ/1,000 ML BAG 100 MEQ IV (20:21)
[2022-09-28] MEDS: amlodipine 5 mg Tablet PO (20:22)
[2022-09-28] MEDS: BuSPIRONE 10 mg Tablet 5 MG PO (21:03)
[2022-09-28 23:41] VITALS: BP 119/59; PULSE 105; RESP 20; TEMP 37.1; O2SAT 93
[2022-09-29 03:36] LABS: Urine Appearance Cloudy (CLEAR); Urine Color Yellow (Yellow)
[2022-09-29 03:37] LABS: Blood Urine 2+ (Negative); Glucose Urine UA Norm (Normal); Ketones Urine Negative (Negative); Nitrate Urine Negative (Negative); Protein Urine Trace (Negative); pH Urine 5 (5-7)
[2022-09-29 03:38] LABS: Add Urine Microscopic? YES; Bilirubin Urine Neg (Negative); Leukocyte Esterase Urine 2+ (Negative); Urobilinogen Urine 1 mg/dL (Negative)
[2022-09-29 03:39] VITALS: BP 102/64; PULSE 95; RESP 18; TEMP 36.7; O2SAT 94
[2022-09-29 03:45] LABS: Add Urine Culture? Yes; Bacteria Urine 4+ /hpf; WBC Urine >100 /hpf (0-5)
[2022-09-29] MEDS: D5-NS 0.45% + KCL 20 mEq 20 MEQ/1,000 ML BAG 100 MEQ IV ×2 (04:10→14:26)
[2022-09-29 04:43] LABS: Urine Creatinine 159 mg/dL (28-217); Urine Random Sodium 25 mmol/L
[2022-09-29] MEDS: pantoprazole 40 mg SDV IVP ×2 (05:20→17:05)
[2022-09-29 05:25] LABS: Basophils # 0.1 10^3/uL (0.0-0.1); Basophils % 0.8 %; Eosinophils # 0.6 10^3/uL (0.0-0.8); Eosinophils % 7.1 %; Hematocrit 25.2 % (37.0-47.0); Hemoglobin 7.7 g/dL (11.5-15.3); Lymphocytes # 1.9 10^3/uL (0.8-4.8); Lymphocytes % 20.9 %; Mean Corpuscular HGB Conc 30.6 g/dL (30.0-36.0); Mean Corpuscular Hemoglobin 26.9 pg (28.0-34.0); Mean Corpuscular Volume 88.1 fl (81-99); Mean Platelet Volume 9.9 fL (7.4-10.4); Monocytes # 1.4 10^3/uL (0.2-0.9); Monocytes % 15.7 %; Neutrophils # 5.01 10^3/uL (1.8-7.7); Neutrophils % 55.2 %; Nucleated Red Blood Cells % 0 %; Platelet Count 201 10^3/cmm (130-400); Red Blood Count 2.86 10^6/uL (4.1-5.3); Red Cell Distribution Width 19.6 % (12.1-15.1); White Blood Count 9.1 10^3/uL (4.0-10.0)
[2022-09-29 05:38] LABS: INR 1.25 (0.8-1.2)
[2022-09-29 05:44] LABS: Alanine Aminotransferase 56 U/L (0-33); Albumin Level 2.6 g/dL (3.5-5.2); Alkaline Phosphatase 197 U/L (35-105); Anion Gap 11.5 (5-19); Aspartate Amino Transferase 50 U/L (0-32); Blood Urea Nitrogen 19 mg/dL (6-20); Calcium 7.7 mg/dL (8.5-10.5); Carbon Dioxide 28 mmol/L (22-29); Chloride 102 mmol/L (98-107); Globulin 3.7 g/dL (1.3-4.6); Glomerular Filtration Rate 42.4 mL/min (90-130); Glucose 116 mg/dL (65-115); Osmolality Calculated 289 mOsm/kg (285-295); Potassium 3.5 mmol/L (3.5-5.1); Sodium 138 mmol/L (136-145); Total Bilirubin 1.4 mg/dL (0.15-1.2); Total Protein 6.3 g/dL (6.6-8.7)
[2022-09-29 08:00] VITALS: BP 108/69; PULSE 93; RESP 18; TEMP 36.6; O2SAT 90; O2SAT 93
[2022-09-29] MEDS: folic acid 1 mg Tablet PO (08:56)
[2022-09-29] MEDS: amlodipine 5 mg Tablet PO (08:56)
[2022-09-29] MEDS: BuSPIRONE 10 mg Tablet 5 MG PO ×3 (08:56→21:49)
[2022-09-29] MEDS: multivitamin therapeutic Tablet 1 TAB PO (08:57)
[2022-09-29] MEDS: levothyroxine 75 mcg Tablet PO (08:57)
[2022-09-29] MEDS: thiamine 100 mg Tablet PO (08:57)
[2022-09-29] MEDS: cefTRIAXone 1,000 MG in sodium chloride 0.9% (plus) 50 ML 100 MG IV (09:00)
[2022-09-29 09:26] LABS: Hemoglobin 7.7 g/dL (11.5-15.3)
--- NOTE | 2022-09-29 09:47 | PC.NURSE ---
Dr. Saldaña changed diet order to Clear liquid during morning report by verbal order.
[2022-09-29 10:55] VITALS: BP 116/72; PULSE 99; RESP 17; TEMP 36.7; O2SAT 94
--- NOTE | 2022-09-29 11:38 | P.PN_ITS ---
Subjective Subjective: She reported feeling better today. She is more alert. Denies having any withdrawal symptoms currently. Reports previously was having upper abdominal pain. Melanotic stools. Confirms taking meloxicam at home. Also discussing with case management regarding EtOH use disorder, states that she has an aftercare provider at [place] and has a plan to be returning there for rehabilitation. She states that she is very hungry, requesting to eat something, says she has not eaten in 2 days. Discussed with her risks, clear liquid diet for now due to GI bleeding. Vitals/I&O/Wt Last Vital Signs Temp 98.1 F 09/29/22 10:55 Pulse 99 09/29/22 10:55 Resp 17 09/29/22 10:55 BP 116/72 09/29/22 10:55 Pulse Ox 94 09/29/22 10:55 O2 Del Method 09/29/22 08:00 O2 Flow Rate 2 09/28/22 16:25 09/28/22 09/29/22 09/29/22 22:59 06:59 14:59 Intake Total 781.667 / 781.667 50 / 50 Output Total 400 / 400 Balance 781.667 / 781.667 -350 / -350 Weight last 48 hrs Weight 78.471 kg Physical Exam Const: COMMON NORMALS: patient oriented x3 and alert GENERAL APPEARANCE: cooperative and lethargic ORIENTATION/CONSCIOUSNESS: Yes awake and Yes lethargic HENMT: COMMON NORMALS: oropharynx normal Neck/C-Spine: COMMON NORMALS: no JVD Resp: COMMON NORMALS: normal respiratory effort and clear to auscultation bilaterally AUSCULTATION: clear to auscultation bilaterally Cardio: COMMON NORMALS: no JVD, regular rhythm, S1 normal heart sound present, S2 normal heart sound present and No murmurs present (Cardio) RHYTHM: regular rhythm HEART SOUNDS: S1 normal heart sound present and S2 normal heart sound present GI: COMMON NORMALS: Normal to inspection, nondistended, normoactive bowel sounds present, Soft to palpation and non-tender PALPATION: Yes Soft to palpation Extremity: COMMON NORMALS: no joint enlargement and no pedal edema Neuro: COMMON NORMALS: patient oriented x3 and moves all extremities SENSORIUM/ORIENTATION: Yes alert and Yes lethargic Skin: COMMON NORMALS: no rashes or lesions noted GENERAL SKIN EXAM: no rashes or lesions noted Data 09/29/22 09:08 09/29/22 05:11 A&P Assessment and plan (1) Alcohol withdrawal: Today she is awake and alert. Appears to have slightly delayed responses. Earlier this morning was not oriented, but is oriented currently. Gives history with regards to her EtOH use disorder. States she has an aftercare person at [place] and that she and her family are arranging for her to go there soon as she gets discharged from here. CIWA scores reviewed. Currently not in severe withdrawal. Monitor for progression to severe withdrawal. Reviewed magnesium, level is okay. Encephalopathy could also have been partially from combination toxic effect of her medications like gabapentin, possibly benzodiazepine that she has at home with clonazepam in the setting of JACK. Continue to monitor CIWA for further withdrawal. In case needing further benzodiazepine decrease dose to 2.5 mg. Requested thiamine, folic acid and multivitamin supplementation. Seizure precautions due to history of withdrawal seizures. Requires close monitoring. Monitoring with telemetry due to dyspnea with alcohol withdrawal, potassium abnormalities. (2) Acute anemia: Hemoglobin level appreciated, further decreased down to 7.7 this morning. Repeat requested. With melanotic stools, she confirms also use of meloxicam, EtOH intake, nona pected upper GI bleeding. Discussed with surgery. Placing consultation. Once recovers from more acute issues we will benefit from endoscopic evaluation. INR appreciated, 1.25. History of EtOH use disorder, does not have known cirrhosis. History alcoholic liver disease. We will supplement vitamin K in case of deficiency. Monitor hemoglobin due to risk of further bleeding, requested. Hold sertraline due to risk of bleeding. (3) Melena: Likely NSAID plus EtOH induced gastritis/PUD, upper GI bleed. As above. (4) JACK (acute kidney injury): Suspect combination of dehydration and NSAIDs. Interpretation of urine electrolytes is that his prerenal JACK. Discontinue NSAIDs. Continue fluid challenge. Follow-up renal function. Hold losartan. Creatinine reviewed, with improvement today down to 1.3. (5) Hypokalemia: Received replacement. Give additional potassium p.o. Follow-up potassium level. Receiving IVF with potassium. Follow-up potassium level. Magnesium reviewed and is okay. (6) Transaminitis: Transaminases reviewed, doing better. Follow-up requested. Secondary to EtOH. Does have history of cholelithiasis noted on prior CT. No abdominal pain currently. No upper quadrant tenderness. Monitor T. bili and alk phos. Discussed with her also noted past history of cholelithiasis. She has no right upper quadrant pain. Agosto negative. (7) Acute encephalopathy: Improving. Today she is more alert. Initially not oriented in the morning, but doing better during my visit. Still slight sluggish responses, but provides history and has good insight. Acute metabolic encephalopathy with alcohol withdrawal, possibly toxic effect from medications with JACK, possibly gabapentin, sertraline, benzodiazepine (clonazepam). Hold these medications for now. Renal function noted improving. Monitor. Monitor her condition for when it may be safe to resume her usual medications. Plan Smoking addiction: Nicotine replacement. Hypertension: Continue amlodipine. Decrease to 2.5 mg. Hypothyroidism Attestations Medical Necessity Statement*: Continue admission for assessment and management of acute blood loss anemia, GI bleeding, JACK, further supportive care with alcohol withdrawal with history of severe withdrawal, Diagnoses Alcohol withdrawal F10.939 Acute anemia D64.9 Melena K92.1 JACK (acute kidney injury) N17.9 Hypokalemia E87.6 Transaminitis R74.01 Acute encephalopathy G93.40
[2022-09-29] MEDS: phytonadione (ADULT) 10 mg/mL Ampule 1 mL 5 MG PO (12:11)
[2022-09-29] MEDS: potassium chloride oral liq 20 mEq/15 mL UDC 40 MEQ PO (12:12)
[2022-09-29 14:19] VITALS: PULSE 99; RESP 18; O2SAT 94
--- NOTE | 2022-09-29 15:18 | P.CONIM_ITS ---
Providers/Reason For Consult Consulting Physician/Specialty*: Dr. Omar Wilde DO/General surgery Reason for Consult*: Melanotic stools Attending Physician: Santos Saldaña Primary Care Provider: Catarino Rachel DO History of Present Illness History of Present Illness Heather Choi is a 57 year old female who presents to the hospital in acute alcohol withdrawal. She was found to have melanotic stools and hemoglobin in the 7 range. General surgery was consulted for possible EGD. Patient reports that she has been getting epigastric pain and heartburn. The pain is burning and does not radiate. Nothing seems to make the pain better or worse. She is slightly confused today but oriented x3. She is currently on [facility] protocol Review of Systems General: Reports: 10 or more systems reviewed and unremarkable except in HPI and below Medications/Allergies Home Medications Medication Instructions Recorded Confirmed Last Taken Type gabapentin 300 mg capsule See Rx Instructions .Route 09/09/22 09/28/22 Unknown Rx .COMPLEX #66 caps ondansetron 4 mg disintegrating 4 mg PO Q8H PRN nausea and 09/09/22 09/28/22 Unknown Rx tablet vomiting #15 tabs polyethylene glycol 3350 17 gram 17 g PO BID #100 ea 09/23/22 09/28/22 Unknown Rx oral powder packet (Miralax) albuterol sulfate 90 mcg/actuation 2 puff inhalation QID PRN 09/28/22 09/28/22 Unknown History aerosol inhaler Shortness Of Breath amlodipine 5 mg tablet 5 mg PO DAILY 09/28/22 09/28/22 Unknown History buspirone 5 mg tablet 5 mg PO TID 09/28/22 09/28/22 Unknown History chlorthalidone 25 mg tablet 25 mg PO DAILY 09/28/22 09/28/22 Unknown History clonazepam 0.5 mg tablet 0.5 mg PO BEDTIME PRN Anxiety 09/28/22 09/28/22 Unknown History levothyroxine 75 mcg tablet 75 mcg PO DAILY 09/28/22 09/28/22 Unknown History losartan 100 mg tablet 100 mg PO DAILY 09/28/22 09/28/22 Unknown History meloxicam 7.5 mg tablet 7.5 mg PO DAILY 09/28/22 09/28/22 Unknown History sertraline 100 mg tablet 100 mg PO DAILY 09/28/22 09/28/22 Unknown History Allergies Allergy/AdvReac Type Severity Reaction Status Date / Time No Known Allergies Allergy Unverified 09/09/22 19:15 Current Medications Generic Name Dose Route Start Last Admin Trade Name Bruno PRN Reason Stop Dose Admin Buspirone HCl 5 mg 09/28/22 21:00 09/29/22 21:49 Buspirone 10 Mg Tablet PO 5 mg TID MELANIE Administration Folic Acid 1 mg 09/29/22 09:00 09/29/22 08:56 Folic Acid 1 Mg Tablet PO 1 mg DAILY MELANIE Administration Potassium Chloride/Dextrose/Sod Cl 20 meq in 1,000 mls @ 100 mls/hr 09/28/22 19:11 09/30/22 00:12 D5-Ns 0.45% + Kcl 20 Meq IV 100 mls/hr .Q10H MELANIE Administration Ceftriaxone Sodium 1,000 mg/ 50 mls @ 100 mls/hr 09/29/22 09:00 09/29/22 10:35 Sodium Chloride IV Infused Q24H MELANIE Infusion Protocol Levothyroxine Sodium 75 mcg 09/29/22 09:00 09/29/22 08:57 Levothyroxine 75 Mcg Tablet PO 75 mcg DAILY MELANIE Administration Multivitamins Therapeutic 1 tab 09/29/22 09:00 09/29/22 08:57 Multivitamin Therapeutic Tablet PO 1 tab DAILY MELANIE Administration Pantoprazole Sodium 40 mg 09/29/22 06:00 09/30/22 06:14 Pantoprazole 40 Mg Sdv IVP 40 mg Q12H MELANIE Administration Thiamine Mononitrate 100 mg 09/29/22 09:00 09/29/22 08:57 Thiamine 100 Mg Tablet PO 100 mg DAILY MELANIE Administration PFSH Acute PFSH: Medical History Alcohol use disorder Alcoholic liver disease HTN (hypertension) Osteoarthritis Surgical History History of hip replacement, total Family History Other Alcoholism Social History Smoking and tobacco status: current every day smoker Alcohol intake: current Alcohol intake frequency: 3 or more drinks per day Alcohol type: hard liquor Substance/Drug Use: never Lives independently: Yes Household members: none Marital status: Single Female Reproductive History: Spontaneous abortions: No Vitals/I&O/Wt Last Vital Signs Temp 98.3 F 09/30/22 04:00 Pulse 96 09/30/22 04:00 Resp 16 09/30/22 04:00 BP 108/69 09/30/22 04:00 Pulse Ox 93 09/30/22 04:00 O2 Del Method 09/30/22 04:00 O2 Flow Rate 2 09/28/22 16:25 09/29/22 09/30/22 09/30/22 22:59 06:59 14:59 Intake Total 1230 / 2280 976.667 / 3256.667 Output Total 1000 / 1400 Balance 230 / 880 976.667 / 1856.667 Weight last 48 hrs Weight 173 lb Physical Exam Narrative: General : Patient is well developed , no acute distress, oriented x3 Head : Normal cephalic, a-traumatic. Ears : Pinnae and external canal are normal. Hearing is normal. Eyes : PERRLA, Sclera and injection are normal. No conjunctival discharge. Nose : Mucous membranes are without erythema. Throat : buccal mucosa is normal, gums are without significant recession or hypertrophy. Lungs : Equal chest rise bilaterally, no use of accessory muscles, trachea is midline. Cor : Rate and rhythm are normal. Abdomen : Soft, ND, NT, no g/r/m Extremities : No edema, no cyanosis or clubbing, dorsalis pedis pulses are present bilaterally, non-tender to palpation of calves. Upper extremities are normal bilaterally. Back : non-tender to palpation, no CVA tenderness. Neuro : CN II - XII intact, Upper and lower extremities have equal and full strength Data 09/30/22 04:05 09/30/22 04:05 A&P Assessment and plan (1) Melena: (2) Acute anemia: (3) Alcohol withdrawal: Plan EGD in the morning The risks and benefits of the procedure, including bleeding, infection, intestinal perforation requiring surgery, missed lesion were explained to the patient. The patient is understanding of the risks and wishes to proceed. Coding Level of Care Code Acute Code for [facility] Fwd Diagnoses Melena K92.1 Acute anemia D64.9 Alcohol withdrawal F10.939
[2022-09-29 16:00] VITALS: BP 109/69; PULSE 97; RESP 16; TEMP 36.8; O2SAT 92
[2022-09-29 20:00] VITALS: BP 122/77; PULSE 103; PULSE 97; RESP 16; RESP 18; TEMP 36.7; O2SAT 90; O2SAT 92
[2022-09-30] VITALS (10 sets, daily range): BP systolic 106–145; BP diastolic 69–83; PULSE 78–96; RESP 6–18; TEMP 36.4–36.8; O2SAT 90–95
[2022-09-30] MEDS: D5-NS 0.45% + KCL 20 mEq 20 MEQ/1,000 ML BAG 100 MEQ IV (00:12)
[2022-09-30 04:40] LABS: Basophils # 0.1 10^3/uL (0.0-0.1); Basophils % 1.2 %; Eosinophils # 0.6 10^3/uL (0.0-0.8); Eosinophils % 7.7 %; Hematocrit 25.8 % (37.0-47.0); Hemoglobin 7.9 g/dL (11.5-15.3); Lymphocytes # 1.9 10^3/uL (0.8-4.8); Lymphocytes % 25.7 %; Mean Corpuscular HGB Conc 30.6 g/dL (30.0-36.0); Mean Corpuscular Hemoglobin 27.4 pg (28.0-34.0); Mean Corpuscular Volume 89.6 fl (81-99); Mean Platelet Volume 9.8 fL (7.4-10.4); Monocytes # 1.3 10^3/uL (0.2-0.9); Monocytes % 17.5 %; Neutrophils # 3.51 10^3/uL (1.8-7.7); Neutrophils % 47.8 %; Nucleated Red Blood Cells % 0 %; Platelet Count 201 10^3/cmm (130-400); Red Blood Count 2.88 10^6/uL (4.1-5.3); Red Cell Distribution Width 19.6 % (12.1-15.1); White Blood Count 7.4 10^3/uL (4.0-10.0)
[2022-09-30 04:57] LABS: Alanine Aminotransferase 56 U/L (0-33); Albumin Level 2.8 g/dL (3.5-5.2); Alkaline Phosphatase 217 U/L (35-105); Anion Gap 7.8 (5-19); Aspartate Amino Transferase 58 U/L (0-32); Blood Urea Nitrogen 11 mg/dL (6-20); Carbon Dioxide 29 mmol/L (22-29); Chloride 100 mmol/L (98-107); Globulin 3.8 g/dL (1.3-4.6); Glomerular Filtration Rate 51.4 mL/min (90-130); Glucose 117 mg/dL (65-115); Osmolality Calculated 276 mOsm/kg (285-295); Potassium 3.8 mmol/L (3.5-5.1); Sodium 133 mmol/L (136-145); Total Bilirubin 1.5 mg/dL (0.15-1.2); Total Protein 6.6 g/dL (6.6-8.7)
[2022-09-30] MEDS: pantoprazole 40 mg SDV IVP (06:14)
--- NOTE | 2022-09-30 07:40 | W.PM.OPSUD ---
Surgery/Procedure H&P Update DATE OF PROCEDURE: September 30, 2022 DATE H&P PERFORMED: 09/29/22 H&P UPDATE INFORMATION: I have reviewed H&P completed within last 30 days, I have examined patient prior to procedure and No changes to prior documentation PLANNED PROCEDURE: Operation Date: 09/30/22 08:00 Proposed Procedures p EGD(Not Applicable) - Omar Wilde DO
--- NOTE | 2022-09-30 07:43 | ANES.PREANE2 ---
Pre-Anesthetic Assessment Height/Weight: Height 1.52 m Weight 78.471 kg Temp Pulse Resp BP Pulse Ox O2 Del Method O2 Flow Rate 97.9 F 96 18 108/69 93 2 09/30/22 07:40 09/30/22 07:40 09/30/22 07:40 09/30/22 07:40 09/30/22 07:40 09/30/22 07:40 09/28/22 16:25 Preop Diagnosis: upper GI bleed Operation Date: 09/30/22 08:00 Proposed Procedures p EGD(Not Applicable) - Omar Wilde DO Familial anesthetic complications: none Social Alcohol (seeking rehabilitation drinks 1 pint per day) and Tobacco 6-10 cigarette per day. pack(s) per day pt. states she drank in transport from previous facility to here Exam oriented x 3, clear to auscultation bilaterally and regular rate & rhythm lethargic Airway Submandibular: within normal limits Cervical ROM: within normal limits Mallampati: Class II Dentition: false Pulmonary Chronic Obstructive Pulmonary Disease CV/HEM Anemia and Hypertension JACK creatinine treading down to 1.3 Hepatic Cirrhosis and Hepatitis (treated) Alcoholism drinks pint per day. Patient states she continually drinks through out the day. GI upper GI Bleed. Metabolic Hyperlipidemia and Thyroid Disease [facility] None reported Neuropsych Anxiety, Depression and Seizure (precautions due to withdrawl concerns.) Anesthetic Plan ASA status: 3 Anesthesia: MAC Other: patient reports no current bleeding and no N/V. Medications/Allergies Home Medications Medication Instructions Recorded Confirmed Last Taken Type gabapentin 300 mg capsule See Rx Instructions .Route 09/09/22 09/28/22 Unknown Rx .COMPLEX #66 caps ondansetron 4 mg disintegrating 4 mg PO Q8H PRN nausea and 09/09/22 09/28/22 Unknown Rx tablet vomiting #15 tabs polyethylene glycol 3350 17 gram 17 g PO BID #100 ea 09/23/22 09/28/22 Unknown Rx oral powder packet (Miralax) albuterol sulfate 90 mcg/actuation 2 puff inhalation QID PRN 09/28/22 09/28/22 Unknown History aerosol inhaler Shortness Of Breath amlodipine 5 mg tablet 5 mg PO DAILY 09/28/22 09/28/22 Unknown History buspirone 5 mg tablet 5 mg PO TID 09/28/22 09/28/22 Unknown History chlorthalidone 25 mg tablet 25 mg PO DAILY 09/28/22 09/28/22 Unknown History clonazepam 0.5 mg tablet 0.5 mg PO BEDTIME PRN Anxiety 09/28/22 09/28/22 Unknown History levothyroxine 75 mcg tablet 75 mcg PO DAILY 09/28/22 09/28/22 Unknown History losartan 100 mg tablet 100 mg PO DAILY 09/28/22 09/28/22 Unknown History meloxicam 7.5 mg tablet 7.5 mg PO DAILY 09/28/22 09/28/22 Unknown History sertraline 100 mg tablet 100 mg PO DAILY 09/28/22 09/28/22 Unknown History Allergies Allergy/AdvReac Type Severity Reaction Status Date / Time No Known Allergies Allergy Unverified 09/09/22 19:15 Current Medications Generic Name Dose Route Start Last Admin Trade Name Freq PRN Reason Stop Dose Admin Buspirone HCl 5 mg 09/28/22 21:00 09/29/22 21:49 Buspirone 10 Mg Tablet PO 5 mg TID MELANIE Administration Folic Acid 1 mg 09/29/22 09:00 09/29/22 08:56 Folic Acid 1 Mg Tablet PO 1 mg DAILY MELANIE Administration Potassium Chloride/Dextrose/Sod Cl 20 meq in 1,000 mls @ 100 mls/hr 09/28/22 19:11 09/30/22 00:12 D5-Ns 0.45% + Kcl 20 Meq IV 100 mls/hr .Q10H MELANIE Administration Ceftriaxone Sodium 1,000 mg/ 50 mls @ 100 mls/hr 09/29/22 09:00 09/29/22 10:35 Sodium Chloride IV Infused Q24H MELANIE Infusion Protocol Levothyroxine Sodium 75 mcg 09/29/22 09:00 09/29/22 08:57 Levothyroxine 75 Mcg Tablet PO 75 mcg DAILY MELANIE Administration Multivitamins Therapeutic 1 tab 09/29/22 09:00 09/29/22 08:57 Multivitamin Therapeutic Tablet PO 1 tab DAILY MELANIE Administration Pantoprazole Sodium 40 mg 09/29/22 06:00 09/30/22 06:14 Pantoprazole 40 Mg Sdv IVP 40 mg Q12H MELANIE Administration Thiamine Mononitrate 100 mg 09/29/22 09:00 09/29/22 08:57 Thiamine 100 Mg Tablet PO 100 mg DAILY MELANIE Administration PFSH Anesthesia Medical History Alcohol use disorder Alcoholic liver disease HTN (hypertension) Osteoarthritis Surgical History History of hip replacement, total Family History Other Alcoholism Social History Smoking and tobacco status: current every day smoker Alcohol intake: current Alcohol intake frequency: 3 or more drinks per day Alcohol type: hard liquor Substance/Drug Use: never Lives independently: Yes Household members: none Marital status: Single Female Reproductive History Spontaneous abortions: No Data Anesthesia 09/30/22 04:05 09/30/22 04:05 Short CBC 09/28/22 09/29/22 09/29/22 Range/Units 15:15 05:11 09:08 WBC 9.5 9.1 (4.0-10.0) 10^3/uL Hgb 8.8 L 7.7 L 7.7 L (11.5-15.3) g/dL Hct 28.5 L 25.2 L (37.0-47.0) % MCV 88.2 88.1 (81-99) fl Plt Count 208 201 (130-400) 10^3/cmm Neut % (Auto) 68.4 55.2 % Neut # (Auto) 6.50 5.01 (1.8-7.7) 10^3/uL 09/30/22 Range/Units 04:05 WBC 7.4 (4.0-10.0) 10^3/uL Hgb 7.9 L (11.5-15.3) g/dL Hct 25.8 L (37.0-47.0) % MCV 89.6 (81-99) fl Plt Count 201 (130-400) 10^3/cmm Neut % (Auto) 47.8 % Neut # (Auto) 3.51 (1.8-7.7) 10^3/uL BMP 09/28/22 09/29/22 09/30/22 15:15 05:11 04:05 Sodium 136 138 133 L Potassium 3.0 L 3.5 3.8 Chloride 95 L 102 100 Carbon Dioxide 28 28 29 BUN 20 19 11 Creatinine 1.4 H 1.3 H 1.1 H Glucose 113 116 H 117 H Calcium 8.7 7.7 L 8.0 L Liver Function 09/28/22 09/29/22 09/30/22 Range/Units 15:15 05:11 04:05 Total Bilirubin 1.7 H 1.4 H 1.5 H (0.15-1.2) mg/dL AST 51 H 50 H 58 H (0-32) U/L ALT 67 H 56 H 56 H (0-33) U/L Alkaline Phosphatase 231 H 197 H 217 H (35-105) U/L Albumin 3.1 L 2.6 L 2.8 L (3.5-5.2) g/dL Urine 09/29/22 Range/Units 02:14 Urine Color Yellow (Yellow) Urine Appearance Cloudy A (CLEAR) Urine pH 5 (5-7) Ur Specific [place] 1.020 (1.005-1.030) Urine Protein Trace (Negative) Urine Glucose (UA) Norm (Normal) Urine Ketones Negative (Negative) Urine Nitrate Negative (Negative) Urine Bilirubin Neg (Negative) Ur Leukocyte Esterase 2+ H (Negative) Urine RBC 5-10 H (0-2) /hpf Urine WBC >100 H (0-5) /hpf Coags 09/29/22 05:11 PT 16.10 H INR 1.25 H Cardiac Studies: No Data to Display
--- NOTE | 2022-09-30 08:02 | SUR.PREOP ---
patient came from floor with infiltrated iv in left upper arm. iv catheter was removed and dressed. warm compress was applied to site.
[2022-09-30] MEDS: sodium chloride 0.9% 1,000 ML 30 ML IV (08:04)
--- NOTE | 2022-09-30 08:58 | ANE.PACU2 ---
Inpatient post-anesthesia follow up: Airway intact: Yes Vital signs: Temperature 97.5 F Pulse Rate 89 Respiratory Rate 16 Blood Pressure 126/71 Pulse Oximetry 93 Oxygen Delivery Me thod Room Air Oxygen Flow Rate 5 Fraction of Inspir ed Oxygen Hydration adequate: Yes Nausea and vomiting: No Pain level: 2 Mental status: Baseline
[2022-09-30] MEDS: cefTRIAXone 1,000 MG in sodium chloride 0.9% (plus) 50 ML 100 MG IV (09:29)
[2022-09-30] MEDS: BuSPIRONE 10 mg Tablet 5 MG PO (09:29)
[2022-09-30] MEDS: amlodipine 5 mg Tablet 2.5 MG PO (09:30)
[2022-09-30] MEDS: multivitamin therapeutic Tablet 1 TAB PO (09:31)
[2022-09-30] MEDS: levothyroxine 75 mcg Tablet PO (09:31)
[2022-09-30] MEDS: folic acid 1 mg Tablet PO (09:31)
[2022-09-30] MEDS: thiamine 100 mg Tablet PO (09:31)
--- NOTE | 2022-09-30 11:29 | PC.NURSE ---
Patient had a procedure this am. Upon returning she has been in and out of confusion. Patient is not wanting to follow orders very well. Patient just pulled IV out.
--- NOTE | 2022-09-30 15:32 | PC.NURSE ---
Discussed discharge, new medications, held and discontinued medications as well as follow up appointments. Patient verbalized understanding.
--- NOTE | 2022-09-30 20:08 | PM.DCS ---
Discharge Providers Date of Admission: 09/28/22 18:22 Date of Discharge: September 30, 2022 Attending Provider at Admission: Santos Saldaña Attending Provider at Discharge: Santos Saldaña Primary Care Provider: Catarino Rachel DO Diagnoses at Discharge Discharge Diagnosis (1) Melena: Status: Acute (2) Acute anemia: Status: Acute (3) Alcohol withdrawal: Status: Acute Reason for Visit Reason for Visit: WANTS DETOX Hospital Course Hospital Course Pleasant 57-year-old lady with history of alcohol use disorder, recently detoxed in [place], subsequently was closely following up with aftercare provider, but relapsed again for a day, came into ER due to concern for going into withdrawal. Patient received a dose of Ativan and became lethargic in ER. On presentation noted to be in acute kidney injury with creatinine 1.4. Acute encephalopathy combination of alcohol intoxication, initially thought possibly withdrawal, additionally possibly toxic effect of medications including gabapentin in setting of JACK. She additionally reported having dark black stools and was found to have worsening acute on chronic normocytic anemia. Transaminitis secondary to alcoholic hepatitis, but also hyperbilirubinemia and alk phos elevation noted with history of gallstones. She had no right upper quadrant pain, Agosto negative. No suspicion of acute cholecystitis. She was monitored in the hospital with treatment for alcohol withdrawal, although never really developed withdrawal. Intoxication resolved. With holding her medications mental status improved. With IV hydration/fluid challenge, with holding NSAIDs, JACK with improvement. Creatinine down to 1.1. Mental status further improved. She received replacement of electrolytes including magnesium. Potassium. She was noted to have worsening anemia, hemoglobin down as low as 7.7. Surgery was consulted and she underwent a scopic evaluation with finding of diffuse gastritis suspected secondary to EtOH, with combination with NSAID. She is again counseled on EtOH cessation, was seen by case management provided additionally with options for rehabilitation. She is asked to discontinue and avoid NSAIDs. Her transaminitis has been resolving. Her condition, as well as high risk of relapse discussed again with his sister who is aware, and will be picking her up from the hospital, and supervising her closely. They will be further seeking rehabilitation. Please follow-up on her EtOH use disorder, anemia, reassess renal function after JACK. Losartan is held for now, please reassess when it is safe to resume. For now amlodipine dose is increased. Please assist her with quitting smoking. Follow-up regarding cholelithiasis. Physical Exam Const: COMMON NORMALS: patient oriented x3 and alert GENERAL APPEARANCE: cooperative ORIENTATION/CONSCIOUSNESS: Yes awake HENMT: COMMON NORMALS: oropharynx normal Neck/C-Spine: COMMON NORMALS: no JVD Resp: COMMON NORMALS: normal respiratory effort and clear to auscultation bilaterally AUSCULTATION: clear to auscultation bilaterally Cardio: COMMON NORMALS: no JVD, regular rhythm, S1 normal heart sound present, S2 normal heart sound present and No murmurs present (Cardio) RHYTHM: regular rhythm HEART SOUNDS: S1 normal heart sound present and S2 normal heart sound present GI: COMMON NORMALS: Normal to inspection, nondistended, normoactive bowel sounds present, Soft to palpation and non-tender PALPATION: Yes Soft to palpation Extremity: COMMON NORMALS: no joint enlargement and no pedal edema Neuro: COMMON NORMALS: patient oriented x3 and moves all extremities SENSORIUM/ORIENTATION: Yes alert Skin: COMMON NORMALS: no rashes or lesions noted GENERAL SKIN EXAM: no rashes or lesions noted Discharge Data Studies Completed and Pending Completed Studies During Hospitalization Category Date Time Status XR chest 1V portable [id number] Stat Exams 09/28/22 16:03 Completed Pending at discharge Category Date Time Status Urine Culture Stat Lab 09/29/22 02:14 Results Pathology: Surgical [PTH] Routine Pth 09/30/22 08:29 Ordered Radiology Impressions Chest X-Ray 09/28/22 16:03 Impression: Atherosclerosis and hyperinflation. Laboratory Results WBC 7.4 10^3/uL (4.0-10.0) 09/30/22 04:05 RBC 2.88 10^6/uL (4.1-5.3) L 09/30/22 04:05 Hgb 7.9 g/dL (11.5-15.3) L 09/30/22 04:05 Hct 25.8 % (37.0-47.0) L 09/30/22 04:05 MCV 89.6 fl (81-99) 09/30/22 04:05 MCH 27.4 pg (28.0-34.0) L 09/30/22 04:05 MCHC 30.6 g/dL (30.0-36.0) 09/30/22 04:05 RDW 19.6 % (12.1-15.1) H 09/30/22 04:05 Plt Count 201 10^3/cmm (130-400) 09/30/22 04:05 MPV 9.8 fL (7.4-10.4) 09/30/22 04:05 Neut % (Auto) 47.8 % 09/30/22 04:05 Lymph % (Auto) 25.7 % 09/30/22 04:05 Rich % (Auto) 17.5 % 09/30/22 04:05 Eos % (Auto) 7.7 % 09/30/22 04:05 Baso % (Auto) 1.2 % 09/30/22 04:05 Neut # (Auto) 3.51 10^3/uL (1.8-7.7) 09/30/22 04:05 Lymph # (Auto) 1.9 10^3/uL (0.8-4.8) 09/30/22 04:05 Rich # (Auto) 1.3 10^3/uL (0.2-0.9) H 09/30/22 04:05 Eos # (Auto) 0.6 10^3/uL (0.0-0.8) 09/30/22 04:05 Baso # (Auto) 0.1 10^3/uL (0.0-0.1) 09/30/22 04:05 Nucleated RBC % (auto) 0 % 09/30/22 04:05 Nucleated RBCs # 0.0 /100WBC 09/30/22 04:05 PT 16.10 SECONDS (12.1-14.9) H 09/29/22 05:11 INR 1.25 (0.8-1.2) H 09/29/22 05:11 Sodium 133 mmol/L (136-145) L 09/30/22 04:05 Potassium 3.8 mmol/L (3.5-5.1) 09/30/22 04:05 Chloride 100 mmol/L (98-107) 09/30/22 04:05 Carbon Dioxide 29 mmol/L (22-29) 09/30/22 04:05 Anion Gap 7.8 (5-19) 09/30/22 04:05 BUN 11 mg/dL (6-20) 09/30/22 04:05 Creatinine 1.1 mg/dL (0.5-0.9) H 09/30/22 04:05 GFR Calculation 51.4 mL/min (90-130) L 09/30/22 04:05 Glucose 117 mg/dL (65-115) H 09/30/22 04:05 Calculated Osmolality 276 mOsm/kg (285-295) L 09/30/22 04:05 Calcium 8.0 mg/dL (8.5-10.5) L 09/30/22 04:05 Magnesium 2.0 mg/dL (1.7-2.3) 09/30/22 04:05 Total Bilirubin 1.5 mg/dL (0.15-1.2) H 09/30/22 04:05 AST 58 U/L (0-32) H 09/30/22 04:05 ALT 56 U/L (0-33) H 09/30/22 04:05 Alkaline Phosphatase 217 U/L (35-105) H 09/30/22 04:05 Total Protein 6.6 g/dL (6.6-8.7) 09/30/22 04:05 Albumin 2.8 g/dL (3.5-5.2) L 09/30/22 04:05 Globulin 3.8 g/dL (1.3-4.6) 09/30/22 04:05 Lipase 72 U/L (13-60) H 09/28/22 15:15 Urine Color Yellow (Yellow) 09/29/22 02:14 Urine Appearance Cloudy (CLEAR) A 09/29/22 02:14 Urine pH 5 (5-7) 09/29/22 02:14 Ur Specific [place] 1.020 (1.005-1.030) 09/29/22 02:14 Urine Protein Trace (Negative) 09/29/22 02:14 Urine Glucose (UA) Norm (Normal) 09/29/22 02:14 Urine Ketones Negative (Negative) 09/29/22 02:14 Urine Blood 2+ (Negative) H 09/29/22 02:14 Urine Nitrate Negative (Negative) 09/29/22 02:14 Urine Bilirubin Neg (Negative) 09/29/22 02:14 Urine Urobilinogen 1 mg/dL (Negative) H 09/29/22 02:14 Ur Leukocyte Esterase 2+ (Negative) H 09/29/22 02:14 Urine RBC 5-10 /hpf (0-2) H 09/29/22 02:14 Urine WBC >100 /hpf (0-5) H 09/29/22 02:14 Ur Squamous Epith Cells 5-10 /hpf (0-5) H 09/29/22 02:14 Amorphous Sediment Not Reportable 09/29/22 02:14 Urine Bacteria 4+ /hpf (NONE) H 09/29/22 02:14 Ur Random Sodium 25 mmol/L 09/29/22 03:14 Urine Creatinine 159 mg/dL (28-217) 09/29/22 03:14 Ethyl Alcohol < 10 mg/dL (0-10) 09/28/22 15:15 Vitals Last Vital Signs Temp 98.0 F 09/30/22 15:00 Pulse 86 09/30/22 15:00 Resp 18 09/30/22 15:00 BP 145/78 09/30/22 15:00 Pulse Ox 91 09/30/22 15:00 O2 Del Method 09/30/22 08:52 O2 Flow Rate 5 09/30/22 08:35 Discharge Plan Discharge Patient Disposition: Home Condition: Stable Prescriptions: New folic acid 1 mg Tablet 1 mg PO DAILY Qty: 90 0RF Vitamin B-1 (mononitrate) 100 mg Tablet 100 mg PO DAILY Qty: 90 0RF Thera 400 mcg Tablet 1 tab PO DAILY Qty: 90 0RF Cipro 500 mg tablet 500 mg PO Q12H 4 Days Qty: 8 0RF Continued ondansetron 4 mg tablet,disintegrating 4 mg PO Q8H PRN (Reason: nausea and vomiting) Qty: 15 0RF gabapentin 300 mg capsule See Rx Instructions .ROUTE .COMPLEX Qty: 66 0RF Rx Instructions: 300 mg by mouth three times daily x 5 days, then 300 mg by mouth twice daily x 2 days, then 300 mg by mouth once daily x 2 days polyethylene glycol 3350 [Miralax] 17 gram powder in packet 17 g PO BID Qty: 100 0RF buspirone 5 mg Tablet 5 mg PO TID clonazepam 0.5 mg tablet 0.5 mg PO BEDTIME PRN (Reason: Anxiety) chlorthalidone 25 mg Tablet 25 mg PO DAILY levothyroxine 75 mcg tablet 75 mcg PO DAILY sertraline 100 mg Tablet 100 mg PO DAILY albuterol sulfate 90 mcg/actuation Hfa Aerosol Inhaler 2 puff INHALATION QID PRN (Reason: Shortness Of Breath) Changed amlodipine 5 mg Tablet 10 mg PO DAILY Qty: 90 0RF Held losartan 100 mg Tablet 100 mg PO DAILY Hold Instructions: Resume on 10/14/22. Discontinued meloxicam 7.5 mg Tablet 7.5 mg PO DAILY Discharge Orders: Discharge Order (Routine); Ordered 09/30/22 Ordered By: Santos Saldaña Referrals: Omar Wilde DO [Physician] - 2 weeks (Please call Sunday to schedule a hospital follow up appointment. ) Catarino Rachel DO [Primary Care Provider] - 4-7 days (Please call sunday to schedule an appointment with Catarino Douglass.) Discharge Diet: As Directed, Low Cholesterol and Low Fat Patient Instructions: Ciprofloxacin (By mouth), Thiamine (By mouth), How to Stop Smoking (GEN), Gastritis (GEN), Urinary Tract Infection in Women (GEN), Cigarette Smoking and Your Health (GEN), Alcohol Withdrawal (GEN), Alcohol Dependence (GEN), GI Discharge Instructions Activity Restrictions/Additional Instructions: Do not drink any alcohol. Continue alcohol use will lead to further worsening of inflammation in her stomach, bleeding, possibly life-threatening bleeding and . Progression of liver disease, liver cirrhosis, liver cancer but also stomach and other cancers, as well as dementia and other serious conditions. Continue to seek rehabilitation. Stop meloxicam and avoid any other NSAIDs as well this may also contribute to inflammation in your stomach. Continue acid natasha medications. Follow-up with your primary doctor to reassess anemia. Follow-up with your primary doctor also to reassess kidney function after acute kidney injury. Hold losartan for now until your primary doctor reassesses your kidney function and finds that it may be safe to resume. Increase your amlodipine to 10 mg to help with high blood pressure in the meantime. Stop smoking. Follow-up with your primary doctor to help you quit. Follow-up with your primary doctor regarding gallstones. Maintain low-fat diet. Discharge Attestations Time Spent in Discharge Care*: greater than 30 min Quality Metrics Clinical Quality Measures [ No reported AMI, CVA or VTE this stay] Coding Level of Care Code Acute Code for Chg Fwd Diagnoses Melena K92.1 Acute anemia D64.9 Alcohol withdrawal F10.263
== END 2022-09-30 15:00 | disposition home or self-care (01) ==
LOC: ER 15:04 → MEDSURG 18:59
PROVIDERS: Surgery; Admitting Provider Internal Medicine; Emergency Provider Family Medicine; PCP Family Medicine; Visit Provider Internal Medicine
PROC: 0DJ08ZZ Inspection of Upper Intestinal Tract, Via Natural or Artificial Opening Endoscopic (ICD-10-PCS; CPT 43235; principal; 2022-09-30 08:00)
DX: K92.1 Melena (principal); D64.9 Anemia, unspecified; F10.939 Alcohol use, unspecified with withdrawal, unspecified; F17.210 Nicotine dependence, cigarettes, uncomplicated; J44.9 Chronic obstructive pulmonary disease, unspecified; I10 Essential (primary) hypertension; E78.5 Hyperlipidemia, unspecified; K29.70 Gastritis, unspecified, without bleeding; E03.9 Hypothyroidism, unspecified
CPT/HCPCS: 36415; 43239; 43255; 71045; 80053; 80307; 81001; 82570; 83690; 83735; 84300; 85018; 85025; 85610; 87077; 87086; 87186; 88305; 94640; 96361; 96372; 96374; 99285; C9113; G0378; J0696; J2060; J2550; J2704; J3411; J3430; J3490; J7030

== ENCOUNTER → 2022-10-17 14:17 | Outpatient (BNVA) | payer MEDICARE, MEDICAID, SELFPAY | PROVIDERS: PCP Family Medicine; Visit Provider Surgery | DX: K76.6 Portal hypertension (principal); K31.89 Other diseases of stomach and duodenum | CPT/HCPCS: 99203 ==